=== PATIENT | male | born 1965 | race Caucasian/White ===

== ENCOUNTER 2016-10-31 07:14 | Day surgery (SDC) | payer BC, OTHER ==
[2016-10-28 14:49] VITALS: BMI 27.9
[2016-10-31] MEDS ORDERED: LIDOCAINE HCL/PF 2% SDV 5ML VIAL ONE (08:02)
[2016-10-31] MEDS ORDERED: PROPOFOL 20 ML ONE ×4 (08:02)
[2016-10-31 09:26] VITALS: TEMP 98.8
[2016-10-31 10:01] VITALS: BP 131/95; PULSE 84
--- NOTE | 2016-11-01 14:32 | PATH ---
Surgical Pathology Report Patient Name: VERONICA MIR [facility]. Rec. #: [id number] /Age/Gender: 1965 (Age: 51) / M Account: [id number] Location: [facility]-ENDOSCOPY Taken: 10/31/2016 Received: 10/31/2016 Reported: 11/01/2016 Physicians: Tom Banks M.D. Specimen(s) Received BX GE JUNCTION Clinical History Rectal bleeding, Booker's esophagus Hiatal hernia, irregular Z-line, fundic gland polyp, grade 2 hemorrhoids, diverticulosis Final Diagnosis GE JUNCTION, BIOPSY: SQUAMOUS EPITHELIUM WITH CHRONIC INFLAMMATION AND REFLUX TYPE CHANGES. NO COLUMNAR EPITHELIUM PRESENT (NO INTESTINAL METAPLASIA OR BOOKER'S ESOPHAGUS IDENTIFIED IN THE EXAMINED MATERIAL). Comment: Prior history of Booker's esophagus is noted. Endoscopic correlations and followup are suggested. Electronically Signed Romario Gonzalez M.D. Gross Description Received in formalin, labeled "GE junction" are three fragments of lozano-white tissue measuring 0.2-0.3 cm in greatest dimension. The specimen is submitted in toto in one cassette. AF/10/31/2016 final/10/31/2016
== END 2016-10-31 10:00 | disposition home or self-care (01) ==
LOC: JASU-ENDO 07:14
PROVIDERS: ATTEND Internal Medicine Gastroenterology
PROC: 0DB58ZX Excision of Esophagus, Via Natural or Artificial Opening Endoscopic, Diagnostic (ICD-10-PCS; 2016-10-31)
PROC: 0DB68ZX Excision of Stomach, Via Natural or Artificial Opening Endoscopic, Diagnostic (ICD-10-PCS; 2016-10-31)
PROC: 0DJD8ZZ Inspection of Lower Intestinal Tract, Via Natural or Artificial Opening Endoscopic (ICD-10-PCS; principal; 2016-10-31 08:00)
DX: K31.7 Polyp of stomach and duodenum (principal); K44.9 Diaphragmatic hernia without obstruction or gangrene; K31.89 Other diseases of stomach and duodenum; K92.1 Melena; K57.30 Diverticulosis of large intestine without perforation or abscess without bleeding; K64.8 Other hemorrhoids
CPT/HCPCS: 88305-TC

== ENCOUNTER 2017-05-24 11:25 | Inpatient (IN) | payer BC, OTHER ==
--- NOTE | 2017-05-24 12:38 | PDOC ---
History of Present Illness - General Chief Complaint: Nausea/Vomiting Stated Complaint: VOMITING History Source: Patient Exam Limitations: No Limitations - History of Present Illness Initial Comments: 05/24/17 12:59 HPI: This 51-year-old male presents to the emergency room with complaints of nausea, vomiting, low-grade fever, tachycardia, and abdominal pain that started yesterday. He does have a significant history of chronic pain issues and does use medical marijuana however he is only just does this twice a day. Chief Compliant: Nausea, vomiting, right upper quadrant abdominal pain Pain location: Right upper quadrant Duration: Last evening Modifying factors: Medical marijuana Quality: Sharp Radiating: A few sleeve around the abdomen Severity: Severe Time: continual PMH: Chronic lower back pain, hypertension, reflux, diaphragmatic hernia, tachycardia, liver disease, Villar's esophagus FH: Pt has not recently traveled outside the country in the last 30 days. Pt has not been in contact with people who have traveled out of the country, in contact with people who have been ill with fever, n, v, d. SH: smoking use: Positive every day illicit drug use: Medical marijuana twice a day alcohol use: NONE employment/educational status: sexual history: PSH: Laminectomy 2, cervical discectomy Home med use noted on APR Allergies: NKA Immunizations: PCP: Dr. Beatrice Kee [employer]: LMP: G P : Past History - Past Medical History Allergies/Adverse Reactions: Allergies Allergy/AdvReac Type Severity Reaction Status Date / Time No Known Drug Allergies Allergy Verified 05/24/17 11:56 Home Medications: Ambulatory Orders Hydrochlorothiazide [Hctz -] 25 mg PO DAILY #0 tablet 09/02/12 Lisinopril [Prinivil] 20 mg PO DAILY 08/16/13 Aspirin [Aspirin EC] 81 mg PO DAILY #0 05/02/14 Omeprazole [Prilosec] 20 mg PO DAILY 05/02/14 Esomeprazole Magnesium [Nexium 24Hr] 20 mg PO HS 05/24/17 Medical Marijuana Tab 1 tab PO BID 05/24/17 Pravastatin Sodium 10 mg PO DAILY 05/24/17 Anemia: No Asthma: No Cancer: No Cardiac Disorders: Yes (TACHYCARDIA,CHEST PAIN) CVA: No COPD: No CHF: No Dementia: No Diabetes: No GI Disorders: No Disorders: No HTN: Yes Hypercholesterolemia: No Liver Disease: No Seizures: No Thyroid Disease: No - Surgical History Abdominal Surgery: No Appendectomy: No Cardiac Surgery: Yes (CARDIAC CATH - NEG) Cholecystectomy: No Lung Surgery: No Neurologic Surgery: Yes (LAMINECTOMY, DISC FUSION) Orthopedic Surgery: Yes (BACK/NECK SURGERY,LAMINECTOMY-THREE DISKS) - Immunization History Td Vaccination: No Immunization Up to Date: No - Suicide/Smoking/Psychosocial Hx Smoking Status: No Smoking History: Unknown if ever smoked Have you smoked in the past 12 months: No Number of Cigarettes Smoked Daily: 0 Information on smoking cessation initiated: No Hx Alcohol Use: No Drug/Substance Use Hx: No Substance Use Type: Alcohol Hx Substance Use Treatment: No Review of Systems - Review of Systems Able to Perform ROS?: Yes Comments:: 05/24/17 13:15 General statement: Abdominal pain Hematology: neg history of bleeding/blood thinners Skin: Neg for lesions, rash, bruising. HEENT: Neg symptoms Respiratory: Neg SOB or difficulty in breathing Cardiac: Neg chest pain GI:+ pain,+ n/v bile color : Neg problems on voiding MS: Neg for joint pain/stiffness, no edema Neuro: Neg for LOC, weakness, Endocrine: Neg for excess thirst/hunger, cold/heat intolerance, excess sweating Allergies: Neg for allergies *Physical Exam - Vital Signs Last Vital Signs Temp Pulse Resp BP Pulse Ox 100.3 F H 127 H 16 137/90 100 05/24/17 11:56 05/24/17 11:56 05/24/17 11:56 05/24/17 11:56 05/24/17 11:56 - Physical Exam Comments: 05/24/17 13:16 General Appearance: This ill-appearing 51-year-old man V/S: Slightly tachycardic at 120, low-grade fever of 100.3 Skin: WNL of pt's skin color, no signs of pallor, mottling, cyanosis Head:symmetrical Eyes: EOM's intact, PERRLA Ears: denies pain Nose: patent Throat: lips, teeth, gums, tongue, buccal mucos pink and moist Lungs: Chest symmetry equal. Cap refill <3 seconds. Lung sounds clear Cardiac: PMI at R 4MCL space, pos S1 and S2, regular rate. Abdomen: Soft, round, +tender right upper quadrant however noted to be wincing when palpated to the left upper and the left lower. Positive Stallworth sign : Not observed Muscularskeletal: Gait steady, ambulated in to ER, no edema +PMS Neuro: AAOx3, cognitively intact, speech clear and appropriate. ED Treatment Course - LABORATORY CBC & Chemistry Diagram: 05/24/17 13:31 05/24/17 13:31 Medical Decision Making - Medical Decision Making 05/24/17 13:17 A/P: 51-year-old man with abdominal pain, nausea vomiting rule out cholecystitis , diverticulitis, viral syndrome -cbc, cmp, lipase, lactic acid, LFT -ct with po/iv abd/pelvic -ekg -ua -ivf, tylenol, zofran 05/24/17 15:16 labs WNL neg lipase, lft afebrile now with tylenol on board awaiting CT of abd/pel 05/24/17 17:42 CT neg which was unexpected with his physical exam of RUQ pain and fever and nausea during ER course labs reviewed and neg will reach out to Dr. Cabello 05/24/17 18:[address] Cabello who requested GI consult and surgical consult and admit for serial GI exams with pt presentation *DC/Admit/Observation/Transfer Diagnosis at time of Disposition: Abdominal pain of unknown cause - Discharge Dispostion Admit: Yes - Referrals Referrals: Papito Kee MD [Primary Care Provider] - - Patient Instructions - Post Discharge Activity
[2017-05-24] MEDS ORDERED: ONDANSETRON 4 MG/2 ML VIAL ONE ×2 (13:03→15:30)
[2017-05-24] MEDS ORDERED: ACETAMINOPHEN INJECTION 100 ML IVPB ONE (13:17)
[2017-05-24] MEDS ORDERED: PANTOPRAZOLE SODIUM 40 MG VIAL IVPUSH ONE ×2 (13:19→21:00)
[2017-05-24] MEDS ORDERED: SODIUM CHLORIDE 1,000 ML IV STA (13:19)
[2017-05-24] MEDS ORDERED: PANTOPRAZOLE SODIUM 40 MG/100 ML BAG IVPB ONE (13:30)
[2017-05-24] MEDS ORDERED: ACETAMINOPHEN 1000 MG/100 ML VIAL (NON FORMULARY) IVPB ONE (13:33)
[2017-05-24] MEDS ORDERED: morphine CARPU-JECT 2 MG/1 ML DISP.SYRIN IVPUSH ONE (13:33)
[2017-05-24] MEDS ORDERED: ONDANSETRON 4 MG/2 ML VIAL IVPUSH ONE ×2 (13:33→15:29)
[2017-05-24] MEDS ORDERED: morphine SULFATE 4 MG/ML VIAL ONE (13:40)
[2017-05-24 13:57] LABS: BASO % 0.4 % (0-2.0); EOS % 0.1 % (0-4.5); HEMOGLOBIN 14.5 GM/dL (11.7-16.9); LYMPH % 10.1 % (8-40); MCH 25.3 pg (25.7-33.7); MCHC 33.1 g/dl (32.0-35.9); MEAN CELL VOLUME 76.6 fl (80-96); MEAN PLT VOLUME 8.6 fl (7.5-11.1); MONO % 7.3 % (3.8-10.2); NEUT % 82.1 % (42.8-82.8); PLATELET COUNT 274 K/MM3 (134-434); RBC 5.74 M/mm3 (4.00-5.60); RDW 15.9 % (11.9-15.9); WHITE BLOOD COUNT 9.3 K/mm3 (4.0-10.0)
[2017-05-24 14:12] LABS: INR 1.13 (0.82-1.09); PROTHROMBIN TIME (PATIENT) 12.8 SEC (9.98-11.88)
[2017-05-24 14:25] LABS: ALBUMIN 3.8 g/dl (3.4-5.0); ALK PHOS 76 U/L (45-117); ANION GAP 11 (8-16); BILIRUBIN,TOTAL 0.5 mg/dL (0.2-1.0); BLOOD UREA NITROGEN 12 mg/dL (7-18); CALCIUM 8.7 mg/dL (8.5-10.1); CHLORIDE 99 mmol/L (98-107); CO2 29 mmol/L (21-32); CREATININE 1.2 mg/dL (0.7-1.3); GLUCOSE,RANDOM 148 mg/dL (74-106); LIPASE 61 U/L (73-393); POTASSIUM 3.6 mmol/L (3.5-5.1); SGOT/AST 20 U/L (15-37); SGPT/ALT 24 U/L (12-78); SODIUM 139 mmol/L (136-145); TOT PROT 8.3 g/dl (6.4-8.2)
[2017-05-24 15:33] LABS: URINE APPEARANCE CLEAR; URINE BILIRUBIN NEGATIVE (<2.0 mg/dL); URINE BLOOD NEGATIVE (NEGATIVE); URINE COLOR YELLOW; URINE GLUCOSE (UA) NEGATIVE (NEGATIVE); URINE KETONE TRACE (NEGATIVE); URINE LEUK ESTERASE NEGATIVE (NEGATIVE); URINE NITRITE NEGATIVE (NEGATIVE); URINE PROTEIN NEGATIVE (NEGATIVE); URINE UROBILINOGEN NEGATIVE mg/dL (0.2-1.0)
[2017-05-24] MEDS ORDERED: SODIUM CHLORIDE 1,000 ML IV SCH (19:00)
--- NOTE | 2017-05-24 20:59 | HP ---
Admitting History and Physical - Primary Care Physician PCP: Papito Kee - Admission Chief Complaint: Abd pain History of Present Illness: Pt developed nausea and vomiting ( every 2 hours) last night, untill this AM when he came to ER; pt also with had two episodes of diarrhea, one time with blood. Pt also with fever since last night. Pt had colonoscopy last year ( normal per pt and -at bed side). History Source: Patient - Past Medical History Cardiovascular: Yes: HTN, Hyperlipdemia Gastrointestinal: Yes: GERD, Other (Villar's esophagus Fatty liver) Musculoskeletal: Yes: Chronic low back pain (s/p laminectomy X 2) - Past Surgical History Past Surgical History: Yes: Laminectomy (X 2) - Smoking History Smoking history: Unknown if ever smoked Have you smoked in the past 12 months: No Aproximately how many cigarettes per day: 0 - Alcohol/Substance Use Hx Alcohol Use: No Home Medications - Allergies Allergies/Adverse Reactions: Allergies Allergy/AdvReac Type Severity Reaction Status Date / Time No Known Drug Allergies Allergy Verified 05/24/17 11:56 - Home Medications Home Medications: Ambulatory Orders Hydrochlorothiazide [Hctz -] 25 mg PO DAILY #0 tablet 09/02/12 Lisinopril [Prinivil] 20 mg PO DAILY 08/16/13 Aspirin [Aspirin EC] 81 mg PO DAILY #0 05/02/14 Omeprazole [Prilosec] 20 mg PO DAILY 05/02/14 Esomeprazole Magnesium [Nexium 24Hr] 20 mg PO HS 05/24/17 Medical Marijuana Tab 1 tab PO BID 05/24/17 Pravastatin Sodium 10 mg PO DAILY 05/24/17 Review of Systems - Review of Systems Constitutional: reports: Fever, Loss of Appetite. denies: Chills Eyes: denies: Blurred Vision, Eye Pain, Recent Change in Vision HENT: reports: Difficult Swallowing, Throat Pain (after vomitting). denies: Ear Discharge, Ear Pain Neck: denies: Stiffness, Tenderness Cardiovascular: denies: Chest Pain, Palpitations, Shortness of Breath Respiratory: denies: Cough, Hemoptysis, Wheezing Gastrointestinal: reports: Abdominal Pain (on right side), Diarrhea, Nausea, Vomiting. denies: Vomiting Blood Genitourinary: denies: Burning, Discharge, Flank Pain Musculoskeletal: reports: Back Pain. denies: Joint Swelling Integumentary: denies: Bruising, Rash Neurological: denies: Change in LOC, Confusion, Numbness, Tremors Endocrine: denies: Excessive Sweating, Intolerance to Cold Psychiatric: reports: Depression. denies: Anxiety Physical Examination Vital Signs: Vital Signs Temperature 99.9 F H 05/24/17 18:01 Pulse Rate 78 05/24/17 19:36 Respiratory Rate 18 05/24/17 19:36 Blood Pressure 139/95 05/24/17 19:36 O2 Sat by Pulse Oximetry (%) 100 05/24/17 19:36 Constitutional: Yes: No Distress. No: Diaphoresis Eyes: Yes: Conjunctiva Clear, EOM Intact HENT: Yes: Other (dry oral mucosa). No: Epistaxis, Pharyngeal Erythema, Rhinnorhea Neck: Yes: Trachea Midline. No: Lymphadenopathy Cardiovascular: Yes: Regular Rate and Rhythm, S1, S2 Respiratory: Yes: Regular, CTA Bilaterally Gastrointestinal: Yes: Tenderness, Tenderness, Epigastrium (less than in RUQ), Other (tenderness in RUQ > RLQ). No: Hepatomegaly, Palpable Mass ...Rectal Exam: Yes: Deferred Renal/: Yes: CVA Tenderness - Right. No: CVA Tenderness - Left Musculoskeletal: No: Joint Stiffness, Joint Swelling Edema: No Neurological: Yes: Alert, Oriented, Other (sensory and motor examination is grossly symmetric in UE/ LE/ face.) Psychiatric: Yes: Alert, Oriented Labs: CBC, BMP 05/24/17 13:31 05/24/17 13:31 Imaging - Results Cat Scan: Report Reviewed Problem List - Problems (1) Abdominal pain of unknown cause Assessment/Plan: Probable colitis vs Gastroenteritis Code(s): R10.9 - UNSPECIFIED ABDOMINAL PAIN (2) Fever Code(s): R50.9 - FEVER, UNSPECIFIED (3) Hypertension Code(s): I10 - ESSENTIAL (PRIMARY) HYPERTENSION (4) Hypercholesterolemia Code(s): E78.00 - PURE HYPERCHOLESTEROLEMIA, UNSPECIFIED (5) Fatty liver Code(s): K76.0 - FATTY (CHANGE OF) LIVER, NOT ELSEWHERE CLASSIFIED (6) Back pain Code(s): M54.9 - DORSALGIA, UNSPECIFIED (7) Tachycardia Code(s): R00.0 - TACHYCARDIA, UNSPECIFIED Assessment/Plan IVF NPO except meds IV Flagyl, Levaquin IV pantoprazole GI consult Surgery consult AM labs
[2017-05-24 21:52] VITALS: BMI 28.5
[2017-05-24] MEDS: SODIUM CHLORIDE 1,000 ML IV SCH (22:13)
[2017-05-24] MEDS: morphine SULFATE 4 MG/ML VIAL IVPUSH PRN (22:59)
[2017-05-25] MEDS: morphine SULFATE 4 MG/ML VIAL IVPUSH PRN ×3 (05:22→20:22)
[2017-05-25 09:02] LABS: ALBUMIN 3.2 g/dl (3.4-5.0); ANION GAP 9 (8-16); BILIRUBIN,TOTAL 0.3 mg/dL (0.2-1.0); BLOOD UREA NITROGEN 10 mg/dL (7-18); CALCIUM 7.4 mg/dL (8.5-10.1); CHLORIDE 106 mmol/L (98-107); CO2 23 mmol/L (21-32); GLUCOSE,RANDOM 103 mg/dL (74-106); POTASSIUM 3.5 mmol/L (3.5-5.1); SGOT/AST 22 U/L (15-37); SGPT/ALT 22 U/L (12-78); SODIUM 138 mmol/L (136-145); TOT PROT 6.8 g/dl (6.4-8.2)
[2017-05-25 09:03] LABS: ALK PHOS 65 U/L (45-117)
--- NOTE | 2017-05-25 09:48 | PN ---
Progress Note, Physician History of Present Illness: Pt with an episode of diarrhea and nausea. Pt c/o worsening back pain, thinks that it was aggravated by recurrent vomiting at home; he states that Morphine help a little today. Pt w/o SOB, CP, palp. - Current Medication List Current Medications: Active Medications Acetaminophen (Tylenol -) 650 mg PO Q6H PRN PRN Reason: FEVER Hydrochlorothiazide (Hctz -) 25 mg PO DAILY [facility] Metronidazole (Flagyl 500mg Premixed Ivpb -) 500 mg in 100 mls @ 100 mls/hr IVPB Q6H-IV [facility] Last Admin: 05/25/17 08:40 Dose: 100 mls/hr Sodium Chloride (Normal Saline -) 1,000 mls @ 100 mls/hr IV ASDIR [facility] Last Admin: 05/24/17 22:13 Dose: 100 mls/hr Lisinopril (Prinivil) 20 mg PO DAILY [facility] Morphine Sulfate (Morphine Sulfate) 2 mg IVPUSH Q4H PRN PRN Reason: PAIN LEVEL 4 - 6 Last Admin: 05/25/17 05:22 Dose: 2 mg - Objective Vital Signs: Vital Signs Temperature 100.3 F H 05/25/17 06:00 Pulse Rate 96 H 05/25/17 06:00 Respiratory Rate 20 05/25/17 06:00 Blood Pressure 158/81 05/25/17 06:00 O2 Sat by Pulse Oximetry (%) 100 05/24/17 21:32 Constitutional: Yes: No Distress Cardiovascular: Yes: Regular Rate and Rhythm, S1, S2 Respiratory: Yes: Regular, CTA Bilaterally. No: Rales Gastrointestinal: Yes: Normal Bowel Sounds, Soft, Tenderness (in RUQ), Tenderness, Epigastrium (severe with palpation) Edema: No Neurological: Yes: Alert, Oriented Labs: CBC, BMP 05/25/17 06:30 05/25/17 06:30 INR, PTT INR 1.13 (0.82-1.09) 05/24/17 13:31 Problem List - Problems (1) Abdominal pain of unknown cause Code(s): R10.9 - UNSPECIFIED ABDOMINAL PAIN (2) Fever Code(s): R50.9 - FEVER, UNSPECIFIED (3) Hypertension Code(s): I10 - ESSENTIAL (PRIMARY) HYPERTENSION (4) Hypercholesterolemia Code(s): E78.00 - PURE HYPERCHOLESTEROLEMIA, UNSPECIFIED (5) Fatty liver Code(s): K76.0 - FATTY (CHANGE OF) LIVER, NOT ELSEWHERE CLASSIFIED (6) Back pain Code(s): M54.9 - DORSALGIA, UNSPECIFIED (7) Tachycardia Code(s): R00.0 - TACHYCARDIA, UNSPECIFIED Assessment/Plan IVF IV Flagyl. GI consult; Dr. Violet Acosta ( Covering) on the floor, case was discussed with him , to see pt soon. Surgery consult Morphine IV. NPO for now, until cleared by GI. AM labs
[2017-05-25 10:15] LABS: HEMATOCRIT 40.2 % (35.4-49); HEMOGLOBIN 13.1 GM/dL (11.7-16.9); MCH 25.3 pg (25.7-33.7); MCHC 32.5 g/dl (32.0-35.9); MEAN CELL VOLUME 77.8 fl (80-96); MEAN PLT VOLUME 8.5 fl (7.5-11.1); PLATELET COUNT 235 K/MM3 (134-434); RBC 5.17 M/mm3 (4.00-5.60); RDW 15.7 % (11.9-15.9); WHITE BLOOD COUNT 6.4 K/mm3 (4.0-10.0)
[2017-05-25] MEDS: LISINOPRIL 20 MG TABLET (FP) PO SCH (10:23)
[2017-05-25] MEDS: HYDROCHLOROTHIAZIDE 25 MG TABLET (FP) PO SCH (10:23)
[2017-05-25] MEDS: SODIUM CHLORIDE 1,000 ML IV SCH (10:24)
--- NOTE | 2017-05-25 10:43 | CON.GI ---
Consult Consult Specialty:: GI: Dr. Kirk for Dr. Rutledge/Mani who resumes coverage 05/26 Referred by:: Dr. Geneva Kee Reason for Consultation:: Abdominal pain, nausea, vomiting, diarrhea - History of Present Illness Chief Complaint: Nasuea. vomiting and diarrhea History of Present Illness: 51M admitted through [facility] ER for evaluation of N/V/D. He states that symptoms started this past Monday. The vomiting was preceded by a diminished appetite and an episode of non-bloody diarrhea. His niece had similar symptoms the week prior and denies. He recently started on medicinal marijuana the past month. CT scan of the abdomen and pelvis performed with IV contrast on admission was unrevealing. He has a normal WBC as well with low grade temps. The abdominal pain is mid abdomen. He had a diarrheal bowel movement yesterday, none today. He was followed by Dr. Banks in the past. EGD 05/23 revealed a 2cm hiatal hernia and biopsy of a ragged Z-Line revealed squamous without evidence of early's esophagus. Colonoscopy in 2014 revealed hyperplastic sigmoid polyps and was otherwise unrevealing. No vomiting noted today. Admission labs revealed a normal WBC and lipiase level. Hgb A1c 04/23 was 7.9. He states being hungry. - History Source History Provided By: Patient - Past Medical History Cardio/Vascular: Yes: HTN, Hyperlipdemia Gastrointestinal: Yes: GERD, Other (Early's esophagus Fatty liver) Musculoskeletal: Yes: Chronic low back pain (s/p laminectomy X 2) Endocrine: Yes: Diabetes Mellitus - Past Surgical History Past Surgical History: Yes: Laminectomy (X 2) - Alcohol/Substance Use Hx Alcohol Use: Yes (occasional) - Smoking History Smoking history: Unknown if ever smoked Have you smoked in the past 12 months: No Aproximately how many cigarettes per day: 0 - Social History Usual Living Arrangement: With Spouse ADL: Independent Place of : [facility] History of Recent Travel: No Home Medications - Allergies Allergies/Adverse Reactions: Allergies Allergy/AdvReac Type Severity Reaction Status Date / Time No Known Drug Allergies Allergy Verified 05/24/17 11:56 - Home Medications Home Medications: Ambulatory Orders Hydrochlorothiazide [Hctz -] 25 mg PO DAILY #0 tablet 09/02/12 Lisinopril [Prinivil] 20 mg PO DAILY 08/16/13 Aspirin [Aspirin EC] 81 mg PO DAILY #0 05/02/14 Omeprazole [Prilosec] 20 mg PO DAILY 05/02/14 Esomeprazole Magnesium [Nexium 24Hr] 20 mg PO HS 05/24/17 Medical Marijuana Tab 1 tab PO BID 05/24/17 Pravastatin Sodium 10 mg PO DAILY 05/24/17 Family Disease History - Family Disease History Family Disease History: Other: Father (: Does no know medical history), Mother (Alive: DM II), Brother (1, healthy), Sister (2, 1 with cirrhosis (IVDU) ), Son (1, healthy), Daughter (1, healthy) Other Family History: No family h/o colorectal cancer or other GI malignancy Review of Systems - Review of Systems Constitutional: reports: Chills, Fever Cardiovascular: denies: Chest Pain, Shortness of Breath Respiratory: denies: Cough Gastrointestinal: reports: Abdominal Pain, Diarrhea, Nausea, Vomiting. denies: Constipation, Melena, Rectal Bleeding, Vomiting Blood Physical Exam-GI Vital Signs: Vital Signs Temperature 100.3 F H 05/25/17 06:00 Pulse Rate 96 H 05/25/17 06:00 Respiratory Rate 20 05/25/17 06:00 Blood Pressure 158/81 05/25/17 06:00 O2 Sat by Pulse Oximetry (%) 100 05/24/17 21:32 Constitutional: Yes: Calm Eyes: No: Sclera Icterus Cardiovascular: Yes: Regular Rate and Rhythm Respiratory: Yes: CTA Bilaterally Gastrointestinal Inspection: No: Distention ...Auscultate: Yes: Normoactive Bowel Sounds ...Palpate: Yes: Tenderness (TTP mid abdomen), Other (No del real's sign) ...Percussion: No: Tympanitic Edema: No (No LE edema) Neurological: Yes: Alert, Oriented Labs: CBC, BMP 05/25/17 09:15 05/25/17 06:30 INR 1.13 (0.82-1.09) 05/24/17 13:31 Hepatic Panel Total Bilirubin 0.3 mg/dL (0.2-1.0) D 05/25/17 06:30 AST 22 U/L (15-37) 05/25/17 06:30 ALT 22 U/L (12-78) 05/25/17 06:30 Alkaline Phosphatase 65 U/L (45-117) 05/25/17 06:30 Albumin 3.2 g/dl (3.4-5.0) L 05/25/17 06:30 05/24/17 13:31 Lipase 61 L 04/14/17 07:59 Triglycerides 108 Imaging - Results Cat Scan: Report Reviewed, Image Reviewed Problem List - Problems (1) Nausea, vomiting, and diarrhea Assessment/Plan: With sick contact with similar symptoms last week ? Acute gastroenteritis Advised continuing NPO for now Stool for c. diff, O&P, culture ordered Ordered abdominal US to reevealuate gallbladder Monitor daily labs If pain improved and patient remains, nausea/vomiting free, advance to clears Minimize opiate analgesia Code(s): R11.2 - NAUSEA WITH VOMITING, UNSPECIFIED; R19.7 - DIARRHEA, UNSPECIFIED
--- NOTE | 2017-05-25 12:13 | PN ---
Progress Note (short form) - Note Progress Note: surgery pt seen and examined. full consult dictated. 51m developed nausea, fever, and vomiting with diarrhea after eating turkey sandwich and around sick niece last week. Ct with contrast negative. On exam epigastric tenderness without guarding. Plan-abd pain. Negative ct. No indication for exploratory surgery. agree with u/s of gb. suspect enteritis.
--- NOTE | 2017-05-25 12:35 | CONS ---
DATE OF CONSULTATION: 05/25/2017 INPATIENT CONSULTATION REASON FOR CONSULTATION: Abdominal pain. REQUESTING PHYSICIAN: Beatrice Kee M.D. BRIEF HISTORY: This is a 51-year-old male who presents to [facility] complaining of initial loss of appetite, followed by nausea, vomiting and diarrhea. He was noted to have a low-grade fever, and had a CAT scan of his abdomen and pelvis, which was unremarkable. The CAT scan was done with IV contrast. He was admitted, placed on Levaquin and Flagyl antibiotic, and feels somewhat better. Request is made for surgical evaluation for abdominal pain. PAST MEDICAL HISTORY: Significant for hypertension, hyperlipidemia, gastroesophageal reflux disease, fatty liver, Villar's esophagus, and low back pain. PAST SURGICAL HISTORY: Includes laminectomy. SOCIAL HISTORY: Negative for alcohol. Negative for tobacco. His last colonoscopy was this year, unremarkable. He had an upper endoscopy which showed a hiatal hernia that was small. FAMILY HISTORY: Noncontributory. REVIEW OF SYSTEMS: General: Denies fatigue or malaise. Cardiac: Denies chest pain or palpitations. Respiratory: Denies shortness of breath or wheeze. Gastrointestinal: As stated in the HPI. Genitourinary: Denies dysuria. Musculoskeletal: Denies joint pain or joint swelling. Psychiatric: Denies depression or hearing voices. PHYSICAL EXAMINATION: General: This is an overweight 51-year-old male in no distress. Vital signs: He is currently febrile at 100.3, which is also his temperature maximum. His vital signs are stable. HEENT: His head is normocephalic. His sclerae are anicteric. Neck: Supple. Chest: Clear. Abdomen: Soft. He has epigastric tenderness without guarding. He has no obvious surgical scars, no obvious hernias. The remainder of her abdominal exam is benign. His right upper quadrant is benign as well. Extremities: His extremities have no edema. LABORATORY STUDIES: His white blood cell count is normal at 6.4. His chemistries are unremarkable. His coagulation profile is unremarkable. His urinalysis is negative. IMAGING: On review of his CT, there are no inflammatory changes around his gallbladder. No obvious stones seen. There is no bowel obstruction. There is no appendicitis. There are no hernias noted. ASSESSMENT: This is a 51-year-old male with epigastric abdominal pain, nausea and vomiting. This occurred after eating a turkey sandwich, but he had been feeling lack of appetite throughout the day. He was around a niece who had a stomach bug as well approximately a week ago. At this point there is no indication for exploratory surgery. I would recommend consider ultrasound to better evaluate the gallbladder. I suspect the patient has enteritis. He is currently nontoxic. DO SASHA SOTO/[id number]
[2017-05-25] MEDS: ACETAMINOPHEN 325 MG TABLET (FP) PO PRN (17:06)
[2017-05-26] MEDS: SODIUM CHLORIDE 1,000 ML IV SCH ×2 (00:05→13:58)
[2017-05-26] MEDS: morphine SULFATE 4 MG/ML VIAL IVPUSH PRN ×3 (03:21→13:57)
[2017-05-26 07:59] LABS: BASO % 0.4 % (0-2.0); EOS % 0.6 % (0-4.5); HEMATOCRIT 41.3 % (35.4-49); HEMOGLOBIN 13.8 GM/dL (11.7-16.9); MCH 25.7 pg (25.7-33.7); MCHC 33.5 g/dl (32.0-35.9); MEAN CELL VOLUME 76.6 fl (80-96); MEAN PLT VOLUME 8.3 fl (7.5-11.1); MONO % 12.6 % (3.8-10.2); NEUT % 52.4 % (42.8-82.8); PLATELET COUNT 261 K/MM3 (134-434); RDW 15.8 % (11.9-15.9); WHITE BLOOD COUNT 4.8 K/mm3 (4.0-10.0)
[2017-05-26 08:17] LABS: CHLORIDE 101 mmol/L (98-107); POTASSIUM 3.3 mmol/L (3.5-5.1); SODIUM 137 mmol/L (136-145)
[2017-05-26 08:27] LABS: ALBUMIN 3.5 g/dl (3.4-5.0); ALK PHOS 67 U/L (45-117); ANION GAP 9 (8-16); BILIRUBIN,TOTAL 0.3 mg/dL (0.2-1.0); BLOOD UREA NITROGEN 8 mg/dL (7-18); CALCIUM 7.8 mg/dL (8.5-10.1); CO2 27 mmol/L (21-32); GLUCOSE,RANDOM 104 mg/dL (74-106); SGOT/AST 30 U/L (15-37); SGPT/ALT 32 U/L (12-78); TOT PROT 7.4 g/dl (6.4-8.2)
--- NOTE | 2017-05-26 09:01 | PN ---
Progress Note (short form) - Note Progress Note: surgery u/s unremarkable. ct negative as well. no indication for surgery.
[2017-05-26] MEDS: HYDROCHLOROTHIAZIDE 25 MG TABLET (FP) PO SCH (09:23)
[2017-05-26] MEDS: ACETAMINOPHEN 325 MG TABLET (FP) PO PRN ×2 (09:24→18:39)
[2017-05-26] MEDS: LISINOPRIL 20 MG TABLET (FP) PO SCH (09:24)
[2017-05-26] MEDS ORDERED: POTASSIUM CHLORIDE TABS 20 MEQ TABLET.ER (FP) PO ONE (10:40)
--- NOTE | 2017-05-26 10:40 | PN ---
Progress Note, Physician History of Present Illness: Pt with Diarrhea and nausea. Pt c/o worsening back pain, thinks that was aggravated by recurrent vomiting; he states that Morphine help a little today. Pt w/o SOB, CP, palp. - Current Medication List Current Medications: Active Medications Acetaminophen (Tylenol -) 650 mg PO Q6H PRN PRN Reason: FEVER Last Admin: 05/26/17 09:24 Dose: 650 mg Hydrochlorothiazide (Hctz -) 25 mg PO DAILY [facility] Last Admin: 05/26/17 09:23 Dose: 25 mg Metronidazole (Flagyl 500mg Premixed Ivpb -) 500 mg in 100 mls @ 100 mls/hr IVPB Q6H-IV [facility] Last Admin: 05/26/17 08:36 Dose: 100 mls/hr Sodium Chloride (Normal Saline -) 1,000 mls @ 100 mls/hr IV ASDIR [facility] Last Admin: 05/26/17 00:05 Dose: 100 mls/hr Lisinopril (Prinivil) 20 mg PO DAILY [facility] Last Admin: 05/26/17 09:24 Dose: 20 mg Morphine Sulfate (Morphine Sulfate) 4 mg IVPUSH Q4H PRN PRN Reason: PAIN LEVEL 4 - 6 Last Admin: 05/26/17 08:36 Dose: 4 mg - Objective Vital Signs: Vital Signs Temperature 98.8 F 05/26/17 06:00 Pulse Rate 80 05/26/17 06:00 Respiratory Rate 18 05/26/17 06:00 Blood Pressure 137/92 05/26/17 06:00 O2 Sat by Pulse Oximetry (%) 100 05/25/17 21:00 Constitutional: Yes: Anxious Cardiovascular: Yes: Regular Rate and Rhythm, S1, S2 Respiratory: Yes: Regular, CTA Bilaterally. No: Rales Gastrointestinal: Yes: Normal Bowel Sounds, Soft, Tenderness, Epigastrium ( almoust guarding) Edema: No Neurological: Yes: Alert, Oriented Labs: CBC, BMP 05/26/17 06:30 05/26/17 06:30 INR, PTT INR 1.13 (0.82-1.09) 05/24/17 13:31 Problem List - Problems (1) Abdominal pain of unknown cause Code(s): R10.9 - UNSPECIFIED ABDOMINAL PAIN (2) Fever Code(s): R50.9 - FEVER, UNSPECIFIED (3) Hypertension Code(s): I10 - ESSENTIAL (PRIMARY) HYPERTENSION (4) Hypercholesterolemia Code(s): E78.00 - PURE HYPERCHOLESTEROLEMIA, UNSPECIFIED (5) Fatty liver Code(s): K76.0 - FATTY (CHANGE OF) LIVER, NOT ELSEWHERE CLASSIFIED (6) Back pain Code(s): M54.9 - DORSALGIA, UNSPECIFIED (7) Tachycardia Code(s): R00.0 - TACHYCARDIA, UNSPECIFIED Assessment/Plan IVF- to griselda off Clear liquids, to f/u with GI IV Flagyl. GI consult appreciated Surgery consult and f/u appreciated. Pain management consult ( pt used to be on Percoacet, switched medical marijuana but lately not controlling the pain.) AM labs
--- NOTE | 2017-05-26 14:36 | PN ---
GI Progress Note Subjective: GI NOte: Tolerating solids despite diarrhea and anusea. No vomiting. Suspect that much of the nausea is due to morphine. Will stop parenteral narcotics and IV fluids and switch to po. Will start Reglan for post-viral gastroparesis possibility. C diff is negative. - Objective Vital Signs: Vital Signs Temperature 99.3 F 05/26/17 09:00 Pulse Rate 87 05/26/17 09:00 Respiratory Rate 18 05/26/17 09:00 Blood Pressure 151/92 05/26/17 09:00 O2 Sat by Pulse Oximetry (%) 100 05/25/17 21:00 Laboratory Tests 05/24/17 05/24/17 05/26/17 13:31 13:31 06:30 WBC 9.3 C-Reactive Protein 2.0 H Lipase 61 L 05/26/17 06:30 WBC 4.8 C-Reactive Protein Lipase Constitutional: Anxious ...Auscultate: Yes: Normoactive Bowel Sounds ...Palpate: Yes: Soft, Other (nontender) Labs: CBC, BMP 05/26/17 06:30 05/26/17 06:30 INR, PTT INR 1.13 (0.82-1.09) 05/24/17 13:31 Problem List - Problems (1) Gastroenteritis Assessment/Plan: Resolving gastroenteritis with perhaps some gastroparesis aggravated by MS. Will stop MS and start percocet for his back pain. NO GO objections to discharge if continues to tolerate diet. Will replace K Code(s): K52.9 - NONINFECTIVE GASTROENTERITIS AND COLITIS, UNSPECIFIED (2) Nausea, vomiting, and diarrhea Code(s): R11.2 - NAUSEA WITH VOMITING, UNSPECIFIED; R19.7 - DIARRHEA, UNSPECIFIED
[2017-05-26] MEDS ORDERED: oxyCODONE HCL 5 MG TABLET PO PRN (14:42)
[2017-05-26] MEDS ORDERED: ONDANSETRON 4 MG TABLET PO ONE (15:15)
[2017-05-26] MEDS: METOCLOPRAMIDE HCL 10 MG TABLET (FP) PO SCH (18:04)
[2017-05-26] MEDS: oxyCODONE HCL 5 MG TABLET PO PRN (18:39)
[2017-05-26] MEDS ORDERED: ONDANSETRON 4 MG TABLET PO PRN (18:46)
[2017-05-26] MEDS: metroNIDAZOLE 250 MG TABLET PO SCH (21:46)
[2017-05-27] MEDS: ACETAMINOPHEN 325 MG TABLET (FP) PO PRN ×3 (01:13→13:22)
[2017-05-27] MEDS: oxyCODONE HCL 5 MG TABLET PO PRN ×2 (01:13→08:49)
[2017-05-27] MEDS: METOCLOPRAMIDE HCL 10 MG TABLET (FP) PO SCH ×2 (06:03→10:59)
[2017-05-27] MEDS: metroNIDAZOLE 250 MG TABLET PO SCH ×2 (06:03→14:06)
[2017-05-27 08:14] LABS: HEMATOCRIT 41.3 % (35.4-49); HEMOGLOBIN 13.8 GM/dL (11.7-16.9); MCH 25.7 pg (25.7-33.7); MCHC 33.4 g/dl (32.0-35.9); MEAN CELL VOLUME 76.9 fl (80-96); MEAN PLT VOLUME 8.3 fl (7.5-11.1); PLATELET COUNT 253 K/MM3 (134-434); RBC 5.37 M/mm3 (4.00-5.60); WHITE BLOOD COUNT 4.1 K/mm3 (4.0-10.0)
[2017-05-27 08:45] LABS: ANION GAP 10 (8-16); BLOOD UREA NITROGEN 10 mg/dL (7-18); CALCIUM 8.3 mg/dL (8.5-10.1); CHLORIDE 102 mmol/L (98-107); CO2 28 mmol/L (21-32); GLUCOSE,RANDOM 118 mg/dL (74-106); POTASSIUM 3.4 mmol/L (3.5-5.1); SODIUM 140 mmol/L (136-145)
[2017-05-27] MEDS: HYDROCHLOROTHIAZIDE 25 MG TABLET (FP) PO SCH ×2 (08:49→09:33)
[2017-05-27] MEDS: LISINOPRIL 20 MG TABLET (FP) PO SCH ×2 (08:49→09:34)
[2017-05-27 10:13] VITALS: TEMP 98.5
[2017-05-27] MEDS ORDERED: POTASSIUM CHLORIDE TABS 20 MEQ TABLET.ER (FP) PO ONE (10:30)
[2017-05-27 11:06] VITALS: BP 162/101; PULSE 86
[2017-05-27] MEDS ORDERED: oxyCODONE HCL 5 MG TABLET PO PRN (13:06)
--- NOTE | 2017-05-27 13:27 | DS ---
Physical Examination Vital Signs: Vital Signs Temperature 98.5 F 05/27/17 09:00 Pulse Rate 86 05/27/17 11:05 Respiratory Rate 18 05/27/17 09:00 Blood Pressure 162/101 05/27/17 11:05 O2 Sat by Pulse Oximetry (%) 95 05/26/17 21:00 Findings/Remarks: Pt c/o back pain, better now with Oxycodone; his BP is 7-8 /10 before next Oxycodone dose. Pt is eating w/o vomiting, diarrhea; pt still has nausea on and off. Pt w/o SOB, CP, palpitations. Pt's at bedside. My discussion with Dr. Watts and DC instructions were reviewed with both; all questions were answered. Time spent for managing pt's care: over 50 minutes. Constitutional: Yes: No Distress, Calm Cardiovascular: Yes: Regular Rate and Rhythm, S1, S2 Respiratory: Yes: Regular, CTA Bilaterally Gastrointestinal: Yes: Normal Bowel Sounds, Soft, Tenderness, Epigastrium ( improved, no guarding) Edema: No Neurological: Yes: Alert, Oriented Labs: CBC, BMP 05/27/17 07:18 05/27/17 07:18 Discharge Summary Reason For Visit: ABDOMINAL PAIN OF UNKNOWN ETIOLOGY Current Active Problems Abdominal pain of unknown cause (Acute) Fatty liver (Acute) Fever (Acute) Gastroenteritis (Acute) Hypercholesterolemia (Acute) Hypertension (Acute) Nausea, vomiting, and diarrhea (Acute) Tachycardia (Acute) Procedures: Principal: Abd CT scan. Abd US. CXR Hospital Course: Pt came to ER with vomiting, diarrhea, abd pain and fever. Pt was started on IVF , IV abtx, IV Morphine, and was kept NPO. Pt was seen by GI (Dr. Singleton/ Violet Acosta) and Surgery (Dr. Holguin); pt had abd CT scan, then abd US. Pt developed back pain, likely exacerbated by frequent episodes of vomiting. Pt abd symptoms improved slowly, pt was given trial of liquid diet- tolerated but had nausea and required treatment. Pt to be DC'ed home with f/u with my office, GI, Pain Management (pt's condition was d/w Dr. Reich). Condition: Improved - Instructions Diet, Activity, Other Instructions: Resume diet; avoid large meals; avoid spicy food. Referrals: Vladimir Rutledge MD [Staff Physician] - Papito Kee MD [Primary Care Provider] - (1-2 weeks) Nilo Watts MD [Staff Physician] - (next week) Lily Singleton MD [Staff Physician] - (as directed) Disposition: HOME - Home Medications Comprehensive Discharge Medication List: Ambulatory Orders
== END 2017-05-27 14:21 | disposition home or self-care (01) | DRG 392 ==
LOC: JER 11:25 → JERBED 18:06 → J8W 21:16
PROVIDERS: ADMIT Specialist; ATTEND Specialist
DX: K52.9 Noninfective gastroenteritis and colitis, unspecified (principal); I10 Essential (primary) hypertension; K76.0 Fatty (change of) liver, not elsewhere classified; M54.9 Dorsalgia, unspecified; R00.0 Tachycardia, unspecified; E78.5 Hyperlipidemia, unspecified; K21.9 Gastro-esophageal reflux disease without esophagitis; R50.9 Fever, unspecified; R11.2 Nausea with vomiting, unspecified
CPT/HCPCS: 36415; 71045-TC-FY; 74177-TC; 76700-TC; 80048; 80053; 81003; 83605; 83690; 85025; 85027; 85610; 85730; 86140; 87040; 87045; 87046; 87177; 87209; 87324; 87449; 99285-25; J0131; J7030

== ENCOUNTER 2017-07-26 09:58 | Emergency (ER) | payer BC, OTHER ==
[2017-07-26 10:08] VITALS: BP 153/93; PULSE 81; TEMP 98; BMI 27.9
[2017-07-26] MEDS ORDERED: KETOROLAC TROMETHAMINE 60 MG/2 ML VIAL IM ONE (10:44)
--- NOTE | 2017-07-26 10:51 | PDOC ---
History of Present Illness - General Chief Complaint: Pain Stated Complaint: LT KNEE PAIN Time Seen by Provider: 07/26/17 10:19 History Source: Patient Exam Limitations: No Limitations - History of Present Illness Initial Comments: 07/26/17 11:06 Patient came for evaluation of left knee pain that he has had for some weeks. States however over the past few days has progressively worsened where this morning woke up difficulty ambulating. Denies any recent injury, exercise changes, or other trauma. States pain rule out knowledge has progressively worsened to where he has difficulty bending and ambulating. Patient had meniscus repair to right knee months ago and thinks has same issue with his left knee now. Patient's ascertains that tubal surgeries and has had multiple orthopedic issues because of that. This isn't a pain management program, and generally resolves his pain with medical marijuana 07/26/17 15:17 Occurred: reports: yesterday Severity: reports: moderate Pain Location: reports: lower extremity (left knee ) Method of Injury: Yes: unknown Modifying Factors: improves with: immobilization Loss of Consciousness: no loss of consciousness Associated Symptoms (Fall): denies symptoms Past History - Travel Traveled outside of the country in the last 30 days: No Close contact w/someone who was outside of country & ill: No - Past Medical History Allergies/Adverse Reactions: Allergies Allergy/AdvReac Type Severity Reaction Status Date / Time No Known Drug Allergies Allergy Verified 07/26/17 10:04 Home Medications: Ambulatory Orders Hydrochlorothiazide [Hctz -] 25 mg PO DAILY #0 tablet 09/02/12 Lisinopril [Prinivil] 20 mg PO DAILY 08/16/13 Aspirin [Aspirin EC] 81 mg PO DAILY #0 05/02/14 Esomeprazole Magnesium [Nexium 24Hr] 20 mg PO HS 05/24/17 Anemia: No Asthma: No Cancer: No Cardiac Disorders: Yes (TACHYCARDIA,CHEST PAIN) CVA: No COPD: No CHF: No DVT: No Dementia: No Diabetes: No GI Disorders: No Disorders: No HTN: Yes Hypercholesterolemia: No Liver Disease: No Seizures: No Thyroid Disease: No - Surgical History Abdominal Surgery: No Appendectomy: No Cardiac Surgery: Yes (CARDIAC CATH - NEG) Cholecystectomy: No Lung Surgery: No Neurologic Surgery: Yes (LAMINECTOMY, DISC FUSION, RT KNEE) Orthopedic Surgery: Yes (BACK/NECK SURGERY,LAMINECTOMY-THREE DISKS) - Immunization History Td Vaccination: No Immunization Up to Date: No - Suicide/Smoking/Psychosocial Hx Smoking Status: No Smoking History: Unknown if ever smoked Have you smoked in the past 12 months: No Number of Cigarettes Smoked Daily: 0 Information on smoking cessation initiated: No Hx Alcohol Use: Yes (occasional) Drug/Substance Use Hx: Yes ([employer]) Substance Use Type: None Hx Substance Use Treatment: No Review of Systems - Review of Systems Able to Perform ROS?: Yes Is the patient limited Gabonese proficient: Yes Constitutional: Yes: See HPI, Malaise. No: Symptoms Reported, Fever HEENTM: No: Symptoms Reported Respiratory: No: Symptoms reported Musculoskeletal: Yes: Symptoms Reported, See HPI, Joint Pain, Joint Swelling Neurological: Yes: Symptoms reported All Other Systems: Reviewed and Negative *Physical Exam - Vital Signs Last Vital Signs Temp Pulse Resp BP Pulse Ox 98.0 F 81 18 153/93 100 07/26/17 10:04 07/26/17 10:04 07/26/17 10:04 07/26/17 10:04 07/26/17 10:04 - Physical Exam General Appearance: Yes: Nourished, Appropriately Dressed, Apparent Distress, Mild Distress HEENT: positive: MURALI, Normal ENT Inspection, TMs Normal, Pharynx Normal Neck: positive: Supple. negative: Tender, Lymphadenopathy (R), Lymphadenopathy (L) Respiratory/Chest: positive: Lungs Clear Musculoskeletal: negative: Normal Inspection Extremity: positive: Normal Capillary Refill, Tender. negative: Normal Inspection (patient has swelling and arthritic changes noted to both knees, left knee appears mildly enlarged from right knee. Has tenderness in posterior fossa and lateral aspect of knee but without any obvious crepitus or deformity noted. Walks with a limp), Normal Range of Motion Integumentary: positive: Normal Color, Dry, Warm Neurologic: positive: cost specialist II-XII NML intact, Fully Oriented, Alert, Normal Mood/ Affect, Normal Response ED Treatment Course - RADIOLOGY Radiology Studies Ordered: Category Date Time Status KNEE 3 POS-LEFT [RAD] Stat Radiology 07/26/17 10:44 Ordered Progress Note - Progress Note Progress Note: X-ray negative for fractures or dislocations, knee immobilizer placed which provided patient's significant comfort and support, will follow up with orthopedist for probable soft tissue studies *DC/Admit/Observation/Transfer Diagnosis at time of Disposition: Left knee sprain Qualifiers: Encounter type: initial encounter Involved ligament of knee: unspecified ligament Qualified Code(s): S83.92XA - Sprain of unspecified site of left knee, initial encounter - Discharge Dispostion Disposition: HOME Condition at time of disposition: Stable Decision to Admit order: No - Referrals Referrals: Paipto Kee MD [Primary Care Provider] - Juan Pinedo MD [Staff Physician] - - Patient Instructions Printed Discharge Instructions: DI for Knee Sprain Additional Instructions: Rest, ice to area on and off for 15 minutes 4-6 times a day Avoid heavy lifting or exercise until pain and swelling is resolved or until further directed Keep area highly elevated to reduce swelling Use splints/Cody wrap as directed Followup with orthopedist in one to 2 days if not improving, if significantly improved may wait one week for followup with orthopedist May use ibuprofen 2-200 mg tablets every 6 hours as needed for pain - Post Discharge Activity Forms/Work/School Notes: Back to Work
[2017-07-26] MEDS ORDERED: KETOROLAC TROMETHAMINE 60 MG/2 ML VIAL ONE (10:56)
== END 2017-07-26 11:55 | disposition home or self-care (01) ==
LOC: JERFT 09:58
PROC: 2W3RX1Z Immobilization of Left Lower Leg using Splint (ICD-10-PCS; principal; 2017-07-26)
DX: S83.92XA Sprain of unspecified site of left knee, initial encounter (principal); X58.XXXA Exposure to other specified factors, initial encounter; Y93.89 Activity, other specified; Y92.9 Unspecified place or not applicable
CPT/HCPCS: 73562-TC-LT-FY; 99281-25

== ENCOUNTER 2017-11-22 03:42 | Emergency (ER) | payer BC, OTHER ==
[2017-11-22 04:08] VITALS: TEMP 98.5; BMI 27.9
--- NOTE | 2017-11-22 04:13 | PDOC ---
History of Present Illness - General History Source: Patient Exam Limitations: No Limitations - History of Present Illness Initial Comments: 11/22/17 05:45 The patient is a 52 year old male with a significant PMH of chronic back pain, GERD, hypertension, tachycardia, diaphragmatic hernia and liver disease who presents to the emergency department with abdominal pain for 2 days. The patient reports that his abdominal pain is sharp and constant. He states that he was at home yesterday when he began to experience a sudden onset of abdominal pain after dinner. He reports that it feels like something is eating his insides. He reports that his abdominal pain is diffuse and has worsened since yesterday. The patient reports some associated diarrhea. He denies any other symptoms. He denies any fever, chills, nausea, vomiting, constipation, or urinary symptoms. He denies any chest pain, shortness of breath, headache or dizziness. The patient denies any other complaints. <Pallavi Henriquez - Last Filed: 11/22/17 05:45> - General History Source: Patient Exam Limitations: No Limitations <Meri Zamudio - Last Filed: 11/23/17 06:13> - General Chief Complaint: Pain, Acute Stated Complaint: ABD/BACK PAIN Time Seen by Provider: 11/22/17 04:13 Past History <Pallavi Henriquez - Last Filed: 11/22/17 05:45> - Past Medical History Anemia: No Asthma: No Cancer: No Cardiac Disorders: Yes (TACHYCARDIA,CHEST PAIN) CVA: No COPD: No CHF: No DVT: No Dementia: No Diabetes: No GI Disorders: No Disorders: No HTN: Yes Hypercholesterolemia: No Liver Disease: No Seizures: No Thyroid Disease: No - Surgical History Abdominal Surgery: No Appendectomy: No Cardiac Surgery: Yes (CARDIAC CATH - NEG) Cholecystectomy: No Lung Surgery: No Neurologic Surgery: Yes (LAMINECTOMY, DISC FUSION, RT KNEE) Orthopedic Surgery: Yes (BACK/NECK SURGERY,LAMINECTOMY-THREE DISKS) - Immunization History Td Vaccination: No Immunization Up to Date: No - Suicide/Smoking/Psychosocial Hx Smoking Status: No Smoking History: Never smoked Have you smoked in the past 12 months: No Number of Cigarettes Smoked Daily: 0 Hx Alcohol Use: No Drug/Substance Use Hx: No Substance Use Type: None Hx Substance Use Treatment: No <Meri Zamudio - Last Filed: 11/23/17 06:13> - Past Medical History Allergies/Adverse Reactions: Allergies Allergy/AdvReac Type Severity Reaction Status Date / Time No Known Drug Allergies Allergy Verified 11/22/17 05:26 Home Medications: Ambulatory Orders Hydrochlorothiazide [Hctz -] 25 mg PO DAILY #0 tablet 09/02/12 Lisinopril [Prinivil] 20 mg PO DAILY 08/16/13 Aspirin [Aspirin EC] 81 mg PO DAILY #0 05/02/14 Glyburide [Diabeta -] 1.25 mg PO DAILY@0700 11/22/17 Metoclopramide HCl [Reglan] 5 mg PO ASDIR 11/22/17 Pantoprazole Sodium [Protonix -] 40 mg PO DAILY 11/22/17 Review of Systems - Review of Systems Able to Perform ROS?: Yes Comments:: 11/22/17 05:45 GENERAL/CONSTITUTIONAL: No fever or chills. No weakness. HEAD, EYES, EARS, NOSE AND THROAT: No change in vision. No ear pain or discharge. No sore throat. CARDIOVASCULAR: No chest pain or shortness of breath. RESPIRATORY: No cough, wheezing, or hemoptysis. GASTROINTESTINAL: (+)abdominal. No nausea, vomiting, diarrhea or constipation. GENITOURINARY: No dysuria, frequency, or change in urination. MUSCULOSKELETAL: No joint or muscle swelling or pain. No neck or back pain. SKIN: No rash NEUROLOGIC: No headache, vertigo, loss of consciousness, or change in strength/ sensation. ENDOCRINE: No increased thirst. No abnormal weight change. HEMATOLOGIC/LYMPHATIC: No anemia, easy bleeding, or history of blood clots. ALLERGIC/IMMUNOLOGIC: No hives or skin allergy. <Pallavi Henriquez - Last Filed: 11/22/17 05:45> *Physical Exam - Vital Signs Last Vital Signs Temp Pulse Resp BP Pulse Ox 98.5 F 88 19 171/111 H 98 11/22/17 03:57 11/22/17 03:57 11/22/17 03:57 11/22/17 03:57 11/22/17 03:57 - Physical Exam Comments: 11/22/17 05:46 GENERAL: The patient is in no acute distress. HEAD: Normal with no signs of trauma. EYES: PERRLA, EOMI, sclera anicteric, conjunctiva clear. ENT: Ears normal, nares patent, oropharynx clear without exudates. Moist mucous membranes. NECK: Normal range of motion, supple without lymphadenopathy, JVD, or masses. LUNGS: Breath sounds equal, clear to auscultation bilaterally. No wheezes, and no crackles. HEART:Regular rate and rhythm, normal S1 and S2 without murmur, rub or gallop. ABDOMEN: (+)right sided abdominal pain and tenderness on palpation. Soft, normoactive bowel sounds. No guarding, no rebound. No masses palpable. EXTREMITIES: Normal range of motion, no edema. No clubbing or cyanosis. No erythema, or tenderness. NEUROLOGICAL: Cranial nerves II through XII grossly intact. Normal speech. No focal neurological deficits. MUSCULOSKELETAL: Back non-tender to palpation, no CVA tenderness SKIN: Warm, Dry, normal turgor, no rashes or lesions noted. <Pallavi Henriquez - Last Filed: 11/22/17 05:45> - Vital Signs Last Vital Signs Temp Pulse Resp BP Pulse Ox 98.5 F 88 19 171/111 H 98 11/22/17 03:57 11/22/17 03:57 11/22/17 03:57 11/22/17 03:57 11/22/17 03:57 <Meri Zamudio - Last Filed: 11/23/17 06:13> ED Treatment Course - LABORATORY CBC & Chemistry Diagram: 11/22/17 04:57 11/22/17 04:55 - ADDITIONAL ORDERS Additional order review: Laboratory Results 11/22/17 04:55 Sodium 139 Potassium 3.5 Chloride 102 Carbon Dioxide 32 Anion Gap 6 L BUN 15 Creatinine 1.1 Creat Clearance w eGFR > 60 Random Glucose 183 H Calcium 8.9 Total Bilirubin 0.4 AST 17 ALT 22 Alkaline Phosphatase 73 Total Protein 7.6 Albumin 3.7 Total Amylase 44 Lipase 105 11/22/17 04:57 RBC 5.69 H MCV 77.7 L MCHC 31.8 L RDW 16.0 H MPV 8.7 Neutrophils % 75.0 D Lymphocytes % 15.1 D Monocytes % 5.4 Eosinophils % 4.1 D Basophils % 0.4 - Medications Given in the ED: ED Medications Discontinued Medications Generic Name Dose Route Start Last Admin Trade Name Freq PRN Reason Stop Dose Admin Sodium Chloride 1,000 mls @ 1,000 mls/hr 11/22/17 04:32 11/22/17 05:00 Normal Saline - IV 11/22/17 05:31 1,000 mls/hr ASDIR STA Administration Morphine Sulfate 4 mg 11/22/17 04:32 11/22/17 05:00 Morphine Injection - IVPUSH 11/22/17 04:33 4 mg ONCE ONE Administration Ondansetron HCl 4 mg 11/22/17 04:32 11/22/17 05:01 Zofran Injection IVPUSH 11/22/17 04:33 4 mg ONCE ONE Administration <Pallavi Henriquez - Last Filed: 11/22/17 05:45> - LABORATORY CBC & Chemistry Diagram: 11/22/17 04:57 11/22/17 04:55 <Meri Zamudio - Last Filed: 11/23/17 06:13> Medical Decision Making - Medical Decision Making 11/22/17 06:17 52 yo M presenting to the ER with severe abdominal pain He was previously been worked up for this same presentation (CT and endoscopy) Pt has a h/o chronic back pain for which he previously was taking narcotics He is weaning himself off on narcotics by using CBD Abdomen is diffusely tender to palpation Will do: Labs CT Pain medications Re assess Laboratory Tests 11/22/17 11/22/17 04:55 04:57 WBC 9.9 Hgb 14.0 Hct 44.2 Plt Count 301 BUN 15 Creatinine 1.1 Total Amylase 44 Lipase 105 Pt signed out to Dr Cohen, initial presentation <Meri Zamudio - Last Filed: 11/23/17 06:13> *DC/Admit/Observation/Transfer - Attestations Scribe Attestion: 11/22/17 05:46 Documentation prepared by Pallavi Henriquez, acting as medical insurance collector for Meri Zamudio MD. <Pallavi Henriquez - Last Filed: 11/22/17 05:45> <Meri Zamudio - Last Filed: 11/23/17 06:13> Diagnosis at time of Disposition: Abdominal pain - Discharge Dispostion Disposition: HOME Condition at time of disposition: Stable - Referrals Referrals: Papito Flanagan MD [Primary Care Provider] - Ankush Masterson MD [Staff Physician] - - Patient Instructions Printed Discharge Instructions: DI for Abdominal Pain-Adult Additional Instructions: Please take all medications as prescribed. Please call Dr. Masterson to obtain your EGD results and to discuss follow up for your abdominal pain. Please make an appointment to see your PMD in 2-3 days. Please stick to clear liquids and the BRAT diet (bananas, rice, apple sauce, and toast) Please take all medications prescribed by Dr. Masterson. - Post Discharge Activity Forms/Work/School Notes: Back to Work
[2017-11-22] MEDS ORDERED: SODIUM CHLORIDE 1,000 ML IV STA ×2 (04:32→06:15)
[2017-11-22] MEDS ORDERED: morphine CARPU-JECT 4 MG/1 ML DISP.SYRIN IVPUSH ONE ×2 (04:32→06:15)
[2017-11-22] MEDS ORDERED: ONDANSETRON 4 MG/2 ML VIAL IVPUSH ONE (04:32)
[2017-11-22] MEDS ORDERED: morphine SULFATE 4 MG/ML VIAL ONE (04:44)
[2017-11-22] MEDS ORDERED: ONDANSETRON 4 MG/2 ML VIAL ONE (04:44)
[2017-11-22 05:04] LABS: BASO % 0.4 % (0-2.0); EOS % 4.1 % (0-4.5); HEMATOCRIT 44.2 % (35.4-49); LYMPH % 15.1 % (8-40); MCH 24.7 pg (25.7-33.7); MCHC 31.8 g/dl (32.0-35.9); MEAN CELL VOLUME 77.7 fl (80-96); MEAN PLT VOLUME 8.7 fl (7.5-11.1); MONO % 5.4 % (3.8-10.2); PLATELET COUNT 301 K/MM3 (134-434); RBC 5.69 M/mm3 (4.00-5.60); WHITE BLOOD COUNT 9.9 K/mm3 (4.0-10.0)
[2017-11-22 05:27] LABS: ALBUMIN 3.7 g/dl (3.4-5.0); ALK PHOS 73 U/L (45-117); AMYLASE 44 U/L (25-115); ANION GAP 6 MMOL/L (8-16); BILIRUBIN,TOTAL 0.4 mg/dL (0.2-1); BLOOD UREA NITROGEN 15 mg/dL (7-18); CALCIUM 8.9 mg/dL (8.5-10.1); CHLORIDE 102 mmol/L (98-107); CO2 32 mmol/L (21-32); CREATININE 1.1 mg/dL (0.55-1.3); GLUCOSE,RANDOM 183 mg/dL (74-106); LIPASE 105 U/L (73-393); POTASSIUM 3.5 mmol/L (3.5-5.1); SGOT/AST 17 U/L (15-37); SGPT/ALT 22 U/L (13-61); SODIUM 139 mmol/L (136-145); TOT PROT 7.6 g/dl (6.4-8.2)
[2017-11-22] MEDS ORDERED: ACETAMINOPHEN 1000 MG/100 ML VIAL (NON FORMULARY) IVPB ONE (06:20)
[2017-11-22] MEDS ORDERED: ACETAMINOPHEN INJECTION 100 ML IVPB ONE (06:22)
[2017-11-22 06:58] LABS: URINE APPEARANCE SLCLOUDY; URINE BILIRUBIN NEGATIVE (<2.0 mg/dL); URINE COLOR LTYELLOW; URINE GLUCOSE (UA) 3+ (NEGATIVE); URINE KETONE NEGATIVE (NEGATIVE); URINE LEUK ESTERASE NEGATIVE (NEGATIVE); URINE NITRITE NEGATIVE (NEGATIVE); URINE PROTEIN NEGATIVE (NEGATIVE); URINE UROBILINOGEN NEGATIVE mg/dL (0.2-1.0)
--- NOTE | 2017-11-22 09:02 | PDOC ---
*Physical Exam - Vital Signs Last Vital Signs Temp Pulse Resp BP Pulse Ox 98.5 F 76 18 157/87 98 11/22/17 03:57 11/22/17 06:48 11/22/17 06:48 11/22/17 06:48 11/22/17 06:48 - Physical Exam Comments: 11/22/17 10:02 Gen: aaox3, nad, ambulatory in the ED with a steady gait heart: +s1s2 reg lungs: cta b/l abd: soft, epigastric ttp without rebound or guarding ext: no c/c/e ED Treatment Course - LABORATORY CBC & Chemistry Diagram: 11/22/17 04:57 11/22/17 04:55 - ADDITIONAL ORDERS Additional order review: Laboratory Results 11/22/17 11/22/17 06:15 04:55 Sodium 139 Potassium 3.5 Chloride 102 Carbon Dioxide 32 Anion Gap 6 L BUN 15 Creatinine 1.1 Creat Clearance w eGFR > 60 Random Glucose 183 H Calcium 8.9 Total Bilirubin 0.4 AST 17 ALT 22 Alkaline Phosphatase 73 Total Protein 7.6 Albumin 3.7 Total Amylase 44 Lipase 105 Urine Color Ltyellow Urine Appearance Slcloudy Urine pH 7.0 Ur Specific [place] 1.012 Urine Protein Negative Urine Glucose (UA) 3+ H Urine Ketones Negative Urine Blood Negative Urine Nitrite Negative Urine Bilirubin Negative Urine Urobilinogen Negative Ur Leukocyte Esterase Negative 11/22/17 04:57 RBC 5.69 H MCV 77.7 L MCHC 31.8 L RDW 16.0 H MPV 8.7 Neutrophils % 75.0 D Lymphocytes % 15.1 D Monocytes % 5.4 Eosinophils % 4.1 D Basophils % 0.4 - Medications Given in the ED: ED Medications Discontinued Medications Generic Name Dose Route Start Last Admin Trade Name Freq PRN Reason Stop Dose Admin Acetaminophen 1,000 mg 11/22/17 06:20 11/22/17 06:33 Ofirmev Injection - IVPB 11/22/17 06:21 1,000 mg ONCE ONE Administration Sodium Chloride 1,000 mls @ 1,000 mls/hr 11/22/17 04:32 11/22/17 05:00 Normal Saline - IV 11/22/17 05:31 1,000 mls/hr ASDIR STA Administration Morphine Sulfate 4 mg 11/22/17 04:32 11/22/17 05:00 Morphine Injection - IVPUSH 11/22/17 04:33 4 mg ONCE ONE Administration Morphine Sulfate 4 mg 11/22/17 06:15 11/22/17 06:33 Morphine Injection - IVPUSH 11/22/17 06:16 Not Given ONCE ONE Ondansetron HCl 4 mg 11/22/17 04:32 11/22/17 05:01 Zofran Injection IVPUSH 11/22/17 04:33 4 mg ONCE ONE Administration Medical Decision Making - Medical Decision Making 11/22/17 10:02 a/p: 52yo male with n/v and abd pain - underwent EGD testing 1 month -pt with epigastric pain- cramping pain -labs reviewed ct imaging shows poss thickening of the stomach vs underdistension -lactate pending -pt with burning sensation -will remedicate will monitor and reassess 11/22/17 10:55 pt feeling much better no pain at this time no burning sensation takes protonix and reglan follows with Dr. Masterson will call for EGD results discussed all lab results pt stable for dc to home discussed with the patient labs and imaging results 11/22/17 11:25 lactate 1.9 stable for d/c to home *DC/Admit/Observation/Transfer Diagnosis at time of Disposition: Abdominal pain - Discharge Dispostion Disposition: HOME Condition at time of disposition: Stable Decision to Admit order: No - Referrals Referrals: Papito Flanagan MD [Primary Care Provider] - Ankush Masterson MD [Staff Physician] - - Patient Instructions Printed Discharge Instructions: DI for Abdominal Pain-Adult Additional Instructions: Please take all medications as prescribed. Please call Dr. Masterson to obtain your EGD results and to discuss follow up for your abdominal pain. Please make an appointment to see your PMD in 2-3 days. Please stick to clear liquids and the BRAT diet (bananas, rice, apple sauce, and toast) Please take all medications prescribed by Dr. Masterson. - Post Discharge Activity Forms/Work/School Notes: Back to Work - Attestations Physician Attestion: 11/22/17 10:59 I, Dr. Ijeoma Cohen, DO, attest that this document has been prepared under my direction and personally reviewed by me in its entirety. I further attest, that it accurately reflects all work, treatment, procedures and medical decision -making performed by me.
[2017-11-22] MEDS ORDERED: LIDOCAINE VISCOUS 2% ORAL/TOP 20 ML UNIT-DOSE CUP MM ONE (09:48)
[2017-11-22] MEDS ORDERED: MAG HYDROX/AL HYDROX/SIMETH 30 ML UNIT-DOSE CUP PO ONE (09:48)
[2017-11-22] MEDS ORDERED: LIDOCAINE VISCOUS 2% ORAL/TOP 20 ML UNIT-DOSE CUP ONE (10:01)
[2017-11-22] MEDS ORDERED: MAG HYDROX/AL HYDROX/SIMETH 30 ML UNIT-DOSE CUP ONE (10:01)
[2017-11-22 12:10] VITALS: BP 142/97; PULSE 74
== END 2017-11-22 12:09 | disposition home or self-care (01) ==
LOC: JER 03:42
PROC: 3E033NZ Introduction of Analgesics, Hypnotics, Sedatives into Peripheral Vein, Percutaneous Approach (ICD-10-PCS; principal; 2017-11-22)
PROC: 3E0337Z Introduction of Electrolytic and Water Balance Substance into Peripheral Vein, Percutaneous Approach (ICD-10-PCS; 2017-11-22)
PROC: 3E033GC Introduction of Other Therapeutic Substance into Peripheral Vein, Percutaneous Approach (ICD-10-PCS; 2017-11-22)
DX: R10.9 Unspecified abdominal pain (principal)
CPT/HCPCS: 36415; 74177-TC; 80053; 81003; 82150; 83605; 83690; 85025; 87086; 99283-25; J0131; J7030

== ENCOUNTER 2018-06-13 20:26 | Inpatient (IN) | payer BC, OTHER ==
--- NOTE | 2018-06-13 21:00 | PDOC ---
History of Present Illness - General Chief Complaint: Rash Stated Complaint: RASH Time Seen by Provider: 06/13/18 20:59 - History of Present Illness Initial Comments: 06/13/18 22:03 The patient is a 52 year old male with a history of HTN, Chronic back pain who presents for evaluation of fever, malaise, and rash. The patient reports that he began experiencing a subjective fever 1 day ago with associated malaise, nausea and non-productive cough. He noted the development of a puritic rash today prompting his presentation to the ED for further evaluation. He denies any recent sick contacts or travel and otherwise denies chills, SOB, chest pain , vomiting, abdominal pain, or changes with urination or bowel movements. Past History - Past Medical History Allergies/Adverse Reactions: Allergies Allergy/AdvReac Type Severity Reaction Status Date / Time No Known Drug Allergies Allergy Verified 11/22/17 05:26 Home Medications: Ambulatory Orders Hydrochlorothiazide [Hctz -] 25 mg PO DAILY #0 tablet 09/02/12 Lisinopril [Prinivil] 20 mg PO DAILY 08/16/13 Glyburide [Diabeta -] 1.25 mg PO DAILY@0700 11/22/17 Pantoprazole Sodium [Protonix -] 40 mg PO DAILY 11/22/17 Anemia: No Asthma: No Cancer: No Cardiac Disorders: Yes (TACHYCARDIA,CHEST PAIN) CVA: No COPD: No CHF: No DVT: No Dementia: No Diabetes: No GI Disorders: No Disorders: No HTN: Yes Hypercholesterolemia: No Liver Disease: No Seizures: No Thyroid Disease: No - Surgical History Abdominal Surgery: No Appendectomy: No Cardiac Surgery: Yes (CARDIAC CATH - NEG) Cholecystectomy: No Lung Surgery: No Neurologic Surgery: Yes (LAMINECTOMY, DISC FUSION, RT KNEE) Orthopedic Surgery: Yes (BACK/NECK SURGERY,LAMINECTOMY-THREE DISKS) - Immunization History Td Vaccination: No Immunization Up to Date: No - Suicide/Smoking/Psychosocial Hx Smoking Status: No Smoking History: Never smoked Have you smoked in the past 12 months: No Number of Cigarettes Smoked Daily: 0 Hx Alcohol Use: No Drug/Substance Use Hx: No Substance Use Type: None Hx Substance Use Treatment: No Review of Systems - Review of Systems Comments:: 06/13/18 22:05 Constitutional: Subjective Fever, Malaise No chills, fatigue, HEENT: No Rhinorrhea, nasal congestion, visual changes Cardiovascular: No chest pain, syncope, palpitations, lightheadedness Respiratory: No Cough, Hemoptysis, Gastrointestinal: Nausea, No Abdominal pain, Vomiting, Constipation, Diarrhea, Melena Genitourinary: No Dysuria, Frequency, Urgency, Hesitancy, Hematuria, Flank pain Musculoskeletal: No Myalgia, arthralgia Skin: Diffuse itchy rash. No bruising, pallor Neurologic: No Headache, Dizziness, Numbness, Weakness, or Tingling Psychiatric: No Hallucinations. No SI or HI *Physical Exam - Vital Signs Last Vital Signs Temp Pulse Resp BP Pulse Ox 99.3 F 131 H 18 179/101 H 97 06/13/18 20:36 06/13/18 20:36 06/13/18 20:36 06/13/18 20:36 06/13/18 20:36 - Physical Exam Comments: 06/13/18 22:06 General Appearance: Nourished. No Apparent Distress HEENT: EOMI, MURALI. No Pharyngeal Erythema, Tonsillar Exudate, Tonsillar Erythema Neck: No Cervical Lymphadenopathy Respiratory/Chest: Lungs Clear, Normal Breath Sounds. No Crackles, Rales, Rhonchi, Wheezing Cardiovascular: Regular Rhythm, Regular Rate. No Murmur, Gallops, Rubs Gastrointestinal/Abdominal: Normal Bowel Sounds, Soft. No Guarding, Rebound, Tenderness Musculoskeletal: No CVA Tenderness Extremity: Normal Capillary Refill Integumentary: Diffuse papular blanching rash worse around the neck and extending distally. Normal Color, Dry, Warm Neurologic: Fully Oriented, Alert, Normal Mood/Affect, Normal Response, Heart Score/ECG Review #1 ECG reviewed & interpreted by me at: 22:07 06/13/18 22:07 Sinus Tachycardia No Acute ST elevations or depression HR 106 QRS 78 QTc 435 ED Treatment Course - LABORATORY CBC & Chemistry Diagram: 06/14/18 06:45 06/14/18 06:45 Medical Decision Making - Medical Decision Making 06/13/18 22:07 The patient is a 52 year old male with a history of HTN, Chronic back pain who presents for evaluation of fever, malaise, and rash. Differential includes but is not limited to: Viral Syndrome, infectious, Metabolic Derangement. Given the patient's history and physical exam, we will obtain a cbc, cmp, coags, lactate, ekg, chest plain film to evaluate further. We will continue to monitor and reassess while here in the ED. 06/13/18 23:30 CBC demonstrates an elevated wbc to 14. CMp demonstrates an elevated creatinine to 1.4. Lactate is elevated to 2.7. Chest plain film is unremarkable. UA is unremarkable. Given the patient's rash and fever with unknown source, we cannot fully r/o measles. Given his lactic acidosis and elevated wbc in the setting of tachycardia and hypertension, he requires admission for further monitoring and work up. We discussed the case with the admitting team who accepted the patient for admission. *DC/Admit/Observation/Transfer Diagnosis at time of Disposition: Rash Fever Qualifiers: Fever type: unspecified Qualified Code(s): R50.9 - Fever, unspecified - Discharge Dispostion Condition at time of disposition: Stable Decision to Admit order: Yes - Referrals - Patient Instructions - Post Discharge Activity
[2018-06-13 21:44] LABS: BASO % 0.3 % (0-2.0); EOS % 0.1 % (0-4.5); HEMATOCRIT 46.9 % (35.4-49); HEMOGLOBIN 14.8 GM/dL (11.7-16.9); LYMPH % 16.3 % (8-40); MCH 25.2 pg (25.7-33.7); MCHC 31.5 g/dl (32.0-35.9); MONO % 5.7 % (3.8-10.2); NEUT % 77.6 % (42.8-82.8); PLATELET COUNT 341 K/MM3 (134-434); RBC 5.86 M/mm3 (4.00-5.60); RDW 16.1 % (11.9-15.9); WHITE BLOOD COUNT 14.7 K/mm3 (4.0-10.0)
[2018-06-13 22:01] LABS: INR 1.13 (0.83-1.09); PROTHROMBIN TIME (PATIENT) 13.4 SEC (9.7-13.0)
[2018-06-13 22:03] LABS: ACTIVATED PTT 34.3 SECONDS (25.2-36.5)
[2018-06-13] MEDS ORDERED: SODIUM CHLORIDE 1,000 ML IV STA (22:08)
[2018-06-13 22:11] LABS: ALBUMIN 3.6 g/dl (3.4-5.0); BILIRUBIN,TOTAL 0.7 mg/dL (0.2-1); CALCIUM 9.2 mg/dL (8.5-10.1); CREATININE 1.4 mg/dL (0.55-1.3); POTASSIUM 4.5 mmol/L (3.5-5.1); TOT PROT 7.4 g/dl (6.4-8.2)
[2018-06-13] MEDS ORDERED: morphine CARPU-JECT 4 MG/1 ML DISP.SYRIN IVPUSH ONE (22:41)
--- NOTE | 2018-06-13 22:51 | PDOC ---
Documentation entered by Orlin Garrison SCRIBE, acting as scribe for Felisa Fatima DO. Felisa Fatima DO: This documentation has been prepared by the Meli catherine Matthew, SCRIBE, under my direction and personally reviewed by me in its entirety. I confirm that the documentation accurately reflects all work, treatment, procedures, and medical decision making performed by me. Attending Attestation - Resident Resident Name: Jimmy Stauffer - ED Attending Attestation I have performed the following: I have examined & evaluated the patient, The case was reviewed & discussed with the resident, I agree w/resident's findings & plan - HPI HPI: 06/13/18 21:19 Patient is a 52 year old male with a significant past medical history of chronic back pain, GERD, hypertension, tachycardia, diaphragmatic hernia and liver disease, who presents to the ED with complaints of elevated fever that began yesterday afternoon. Patient reports experiencing subjective fevers as well as associated symptoms of general malaise, non productive cough and general body rash. He reports body rash began to develop on his abdomen and began to radiate towards his neck and become itchy, , prompting him to come into the ED for further evaluation. Denies chest pain, Sob. Denies nausea, vomiting. Denies fevers, chills. Denies constipation, diarrhea. Denies dysuria, hematuria. Denies contact with sick individuals, out of state travelling. Denies any other symptoms. Allergies: NKDA. Social history: No smoking. No alcohol. No illicit drugs. Surgical history: None PMD: Dr. Kee - Physicial Exam PE: 06/13/18 21:19 Agree with residents Physical Exam. - Medical Decision Making 06/13/18 22:42 52-year-old male complaining of patient's sensation to his body as well as rash for several days Labs reveal an elevated white blood cell count as well as elevated lactic acid level Rash does not appear to be consistent with measles infection, serology has been sense Plan for admission to medical service for further evaluation
[2018-06-13 23:05] LABS: PH,URINE 7.5 (5.0-8.0); URINE APPEARANCE CLOUDY; URINE BILIRUBIN NEGATIVE (NEGATIVE); URINE COLOR YELLOW; URINE GLUCOSE (UA) TRACE (NEGATIVE); URINE KETONE NEGATIVE (NEGATIVE); URINE LEUK ESTERASE NEGATIVE (NEGATIVE); URINE NITRITE NEGATIVE (NEGATIVE); URINE PROTEIN NEGATIVE (NEGATIVE); URINE UROBILINOGEN 0.2 mg/dL (0.2-1.0)
[2018-06-13] MEDS ORDERED: morphine SULFATE 4 MG/ML VIAL ONE (23:13)
[2018-06-14] MEDS ORDERED: PIPERACILLIN/TAZOB 4.5 GM 4.5 GM in DEXTROSE 5%-WATER 100 ML IVPB ONE (01:32)
[2018-06-14] MEDS ORDERED: VANCOMYCIN 1,000 MG in DEXTROSE 5%-WATER - 250 ML IVPB ONE (01:32)
[2018-06-14] MEDS ORDERED: PIPERACILLIN/TAZOB 4.5 GM 4.5 GM/100 ML BAG IVPB ONE (01:45)
[2018-06-14] MEDS ORDERED: VANCOMYCIN 1 GRAM (PRE-DOCKED) 1,000 MG/250 ML BAG IVPB ONE (01:46)
--- NOTE | 2018-06-14 02:16 | PN ---
Teaching Attending Note Name of Resident: Hayder Martinez ATTENDING PHYSICIAN STATEMENT I saw and evaluated the patient. I reviewed the resident's note and discussed the case with the resident. I agree with the resident's findings and plan as documented. SUBJECTIVE: Patient is a 52 year old man with a PMH of HTN, Chronic back pain, HLD, GERD, tachycardia, diaphragmatic hernia, fatty liver, Kishor's esophagus and NIDDM who presents for evaluation of fever, malaise, and rash. The patient reports that he began experiencing a subjective fever 1 day ago with associated malaise, nausea and non-productive cough. He noted the development of a pruritic rash today prompting his presentation to the ER. Says his daughter had a rash yesterday but it is not similar to his. He denies any recent travel. Denies chills, SOB, chest pain, vomiting, abdominal pain, or changes with urination or bowel movements. He is on disability due to back pain and was scheduled for lumbar disk surgery next week. Uses cannabis for control of back pain. OBJECTIVE: Alert Vital Signs Period Temp Pulse Resp BP Sys/Nolan Pulse Ox Last 24 Hr 99.3 F 131 18 179/101 97 HEENT: No Jaundice, eye redness or discharge, PERRLA, EOMI. Normocephalic, atraumatic. No oral lesions. External ears are normal and hearing is grossly intact. No nasal discharge. Neck: Supple, nontender. No palpable adenopathy or thyromegaly. No JVD Chest: Good effort. Clear to auscultation and percussion. Heart: Regular. No S3, rub or murmur Abdomen: Not distended, soft, nontender and no HSM. No rebound or guarding. Normal bowel sounds. Ext: Peripheral pulses intact. No leg edema. Skin: Warm and dry. No petechiae or ecchymosis. Diffuse papular blanching rash on limbs, back, torso and neck - sparing the palms and sole of feet. Neuro: Alert. Oriented x3. CN 2-12 grossly intact. Sensation grossly intact in all four extremities and DTR are symmetric. Psych: Appropriate mood and affect. Good insight. Current Medications Generic Name Dose Route Start Last Admin Trade Name Freq PRN Reason Stop Dose Admin Vancomycin HCl 1,000 mg/ 250 mls @ 166.667 mls/hr 06/14/18 01:32 Dextrose IVPB 06/14/18 03:01 ONCE ONE Home Medications Medication Instructions Recorded Hydrochlorothiazide [Hctz -] 25 mg PO DAILY #0 tablet 09/02/12 Lisinopril [Prinivil] 20 mg PO DAILY 08/16/13 Aspirin [Aspirin EC] 81 mg PO DAILY #0 05/02/14 Glyburide [Diabeta -] 1.25 mg PO DAILY@0700 11/22/17 Metoclopramide HCl [Reglan] 5 mg PO ASDIR 11/22/17 Pantoprazole Sodium [Protonix -] 40 mg PO DAILY 11/22/17 Abnormal Lab Results 06/13/18 06/13/18 06/13/18 21:30 21:30 21:30 WBC 14.7 H RBC 5.86 H MCH 25.2 L MCHC 31.5 L RDW 16.1 H Absolute Neuts (auto) 11.4 H PT with INR 13.40 H INR 1.13 H Creatinine 1.4 H Random Glucose 230 H Lactic Acid 06/13/18 21:30 WBC RBC MCH MCHC RDW Absolute Neuts (auto) PT with INR INR Creatinine Random Glucose Lactic Acid 2.7 H* ASSESSMENT AND PLAN: 1. Sepsis of unknown source and Possible Measles - No obvious source of infection and rash may not be classic for measles. Also he does not have any obvious risk factor. No acute abnormality on CXR. EKG shows sinus tachycardia with nonspecific T wave changes. Sepsis workup done and patient will be started on IV Vancomycin and Zosyn as well as continued IV NS according to the sepsis protocol. Serologic tests being sent for measles, mononucleosis, lyme disease and syphilis. Will trend lactic acid, consult ID and Dermatology. 2. DM For now, we will hold the home diabetes drugs and implement sliding scale insulin regimen. Provide comprehensive diabetes care with patient teaching and counseling about the importance of adherence to prescribed diabetes regimen, euglycemia, eye care and foot care. 3. ALYSON - Likely partly due to dehydration. Will hydrate, check CPK and avoid nephrotoxic agents such as NSAIDS, aminoglycosides, contrast dyes and certain Alternative medicine products. 4. Uncontrolled Hypertension - Restart outpatient antihypertensive drugs and revise regimen to ensure smooth [id number] good BP control. Nonpharmacologic measures to control hypertension like weight loss, salt restriction and exercise discussed. 5. DVT prophylaxis - Heparin 5000u sq tid. 6. Advance directives - Full code
[2018-06-14] MEDS ORDERED: ACETAMINOPHEN 325 MG TABLET (FP) PO PRN (02:23)
[2018-06-14] MEDS ORDERED: LACTATED RINGERS SOLUTION 1,000 ML IV SCH (02:30)
--- NOTE | 2018-06-14 02:50 | HP ---
CHIEF COMPLAINT: rash PCP: jim HISTORY OF PRESENT ILLNESS: 52 year old male hx of hypertension, chronic back pain (only on cannabis for pain), DM presented for vague symptoms of feeling alternating hot and cold/ chills for 2 days. This morning woke up nauseous, dizzy, headache, hot, anxious (to the point of crying) and had no appetite. Reports lost 6 pounds in last 3-4 days due to anxiety and no appetite. Went to doctor today (spine surgeon), got hot in his office after being explained the surgery (3 herniated discs with a surgeon at [facility]) hes going to get done on his lumbar spine next week, went home and noticed rash in bathroom on his abdomen, that later progressed to his arms, chest and legs. Reports that the rash is very pruritic but not painful. Checked his blood pressure and it was high at home. Reports no known diagnosis of anxiety and no triggers of anxiety. States that the only new medication he tried yesterday were 2 percocets for pain (he states he has not taken them in a while). Denies sick contacts, but reports that his daughter has a different rash. Daughter works at a school. Patient reports he had his routine vaccinations as a child. 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 ER course was notable for: (1) WBC 14.7 (2) BP elevated (3) LA 2.7 Recent Travel: denies PAST MEDICAL HISTORY: HTN, Chronic back pain, DM, anxiety Social History: Smoking: never cigs/marijuana Alcohol: never Drugs: marijuana Family History: grandma had cancer/dm -mother: DM, RA -Father: alcoholic -2 kids healthy Allergies No Known Drug Allergies Allergy (Verified 11/22/17 05:26) HOME MEDICATIONS: Home Medications Medication Instructions Recorded Hydrochlorothiazide [Hctz -] 25 mg PO DAILY #0 tablet 09/02/12 Lisinopril [Prinivil] 20 mg PO DAILY 08/16/13 Aspirin [Aspirin EC] 81 mg PO DAILY #0 05/02/14 Glyburide [Diabeta -] 1.25 mg PO DAILY@0700 11/22/17 Metoclopramide HCl [Reglan] 5 mg PO ASDIR 11/22/17 Pantoprazole Sodium [Protonix -] 40 mg PO DAILY 11/22/17 REVIEW OF SYSTEMS CONSTITUTIONAL: loss of appetite Absent: fever, chills, diaphoresis, generalized weakness, malaise, weight change HEENT: Absent: rhinorrhea, nasal congestion, throat pain, throat swelling, difficulty swallowing, mouth swelling, ear pain, eye pain, visual changes CARDIOVASCULAR: Absent: chest pain, syncope, palpitations, irregular heart rate, lightheadedness , peripheral edema RESPIRATORY: Absent: cough, shortness of breath, dyspnea with exertion, orthopnea, wheezing, stridor, hemoptysis GASTROINTESTINAL: Absent: abdominal pain, abdominal distension, nausea, vomiting, diarrhea, constipation, melena, hematochezia GENITOURINARY: Absent: dysuria, frequency, urgency, hesitancy, hematuria, flank pain, genital pain MUSCULOSKELETAL: Absent: myalgia, arthralgia, joint swelling, back pain, neck pain SKIN: rash, itching Absent: pallor HEMATOLOGIC/IMMUNOLOGIC: Absent: easy bleeding, easy bruising, lymphadenopathy, frequent infections ENDOCRINE: Absent: unexplained weight gain, unexplained weight loss, heat intolerance, cold intolerance NEUROLOGIC: Absent: headache, focal weakness or paresthesias, dizziness, unsteady gait, seizure, mental status changes, bladder or bowel incontinence PSYCHIATRIC: Absent: anxiety, depression, suicidal or homicidal ideation, hallucinations. PHYSICAL EXAMINATION Vital Signs - 24 hr 06/13/18 20:36 Temperature 99.3 F Pulse Rate 131 H Respiratory 18 Rate Blood Pressure 179/101 H O2 Sat by Pulse 97 Oximetry (%) GENERAL: A&Ox3, no acute distress, very anxious on exam EYES: PERRLA, EOMI ENT: Moist mucus membranes NECK: No JVD LUNGS: CTA, no wheezes HEART: tachycardic, no murmurs ABDOMEN: Soft, nontender, BS present MUSCULOSKELETAL: No CVA Tenderness EXTREMITIES: 2+ pulses, no edema. NEUROLOGICAL: Cranial nerves II-XII intact. SKIN: Scattered erythematous maculopapular lesions sparring palms and soles on abdomen and extremities. No oral lesions. Laboratory Results - last 24 hr 06/13/18 06/13/18 06/13/18 21:30 21:30 21:30 WBC 14.7 H RBC 5.86 H Hgb 14.8 Hct 46.9 MCV 80.0 MCH 25.2 L MCHC 31.5 L RDW 16.1 H Plt Count 341 MPV 8.0 Absolute Neuts (auto) 11.4 H Neutrophils % 77.6 Lymphocytes % 16.3 Monocytes % 5.7 Eosinophils % 0.1 D Basophils % 0.3 Nucleated RBC % 0 PT with INR 13.40 H INR 1.13 H PTT (Actin FS) 34.3 Sodium 136 Potassium 4.5 Chloride 103 Carbon Dioxide 26 Anion Gap 8 BUN 18 Creatinine 1.4 H Est GFR (CKD-EPI)AfAm 66.95 Est GFR (CKD-EPI)NonAf 57.76 Random Glucose 230 H Lactic Acid Calcium 9.2 Total Bilirubin 0.7 AST 23 ALT 22 Alkaline Phosphatase 81 Total Protein 7.4 Albumin 3.6 Urine Color Urine Appearance Urine pH Ur Specific [place] Urine Protein Urine Glucose (UA) Urine Ketones Urine Blood Urine Nitrite Urine Bilirubin Urine Urobilinogen Ur Leukocyte Esterase 06/13/18 06/13/18 21:30 22:40 WBC RBC Hgb Hct MCV MCH MCHC RDW Plt Count MPV Absolute Neuts (auto) Neutrophils % Lymphocytes % Monocytes % Eosinophils % Basophils % Nucleated RBC % PT with INR INR PTT (Actin FS) Sodium Potassium Chloride Carbon Dioxide Anion Gap BUN Creatinine Est GFR (CKD-EPI)AfAm Est GFR (CKD-EPI)NonAf Random Glucose Lactic Acid 2.7 H* Calcium Total Bilirubin AST ALT Alkaline Phosphatase Total Protein Albumin Urine Color Yellow Urine Appearance Cloudy Urine pH 7.5 Ur Specific [place] 1.010 Urine Protein Negative Urine Glucose (UA) Trace Urine Ketones Negative Urine Blood Negative Urine Nitrite Negative Urine Bilirubin Negative Urine Urobilinogen 0.2 Ur Leukocyte Esterase Negative ASSESSMENT/PLAN: 52 year old male hx of hypertension, chronic back pain (only on cannabis for pain), DM presented for vague symptoms and admitted for the evaluation and treatment of systemic inflammatory response with rash #SIRS: tachycardic and elevated white count with no obvious source of infection (UA negative, CXR clear), only rash present on exam -Lactic acid 2.7, repeat -Viral panels sent for measles, flu, mono, RPR sent -Treated with vanc/zosyn in ED -continue empiric vancomycin/zosyn for now until cultures -ID consulted -fluids with LR #Hypertension: uncontrolled and complicated by anxiety and pain -decreased HCTZ and held lisinopril due to kidney injury, but will need to restart MATEO on discharge -start Norvasc 5 now and 5 in AM -recheck BP in AM #Elevated Creatinine: unclear at present time if ALYSON vs CKD -patient is getting fluids -will recheck BMP in AM -can get microalbumin to check for kidney damage from longstanding DM and HTN #Diabetes Mellitus: uncontrolled with BG > 230 -held oral antiglycemic angents -ISS -BGM -A1C in AM #Anxiety: no known diagnosis -consider psychiatry evaluation -ofirmev and morphine overnight for pain, can likely d/c narcotic in AM #Sinus Tachycardia: on EKG, likely due to pain vs anxiety -consider repeating EKG in AM #FEN -LR @ 100cc/hr 1 bag -lytes normal -diabetic diet #Prophylaxis -heparin #Disposition -admit med surg Visit type - Emergency Visit Emergency Visit: Yes ED Registration Date: 06/13/18 Care time: The patient presented to the Emergency Department on the above date and was hospitalized for further evaluation of their emergent condition. - New Patient This patient is new to me today: Yes Date on this admission: 06/14/18 - Critical Care Critical Care patient: No
[2018-06-14] MEDS ORDERED: diphenhydrAMINE HCL 25 MG CAPSULE (FP) PO ONE ×2 (03:13→04:07)
[2018-06-14] MEDS ORDERED: morphine SULFATE 4 MG/ML VIAL IVPUSH ONE ×2 (03:14→14:16)
[2018-06-14] MEDS ORDERED: amLODIPine BESYLATE 5 MG TABLET (FP) PO ONE (03:14)
[2018-06-14] MEDS ORDERED: ACETAMINOPHEN 1000 MG/100 ML VIAL (NON FORMULARY) IVPB ONE (03:14)
[2018-06-14] MEDS ORDERED: ALPRAZolam 0.25 MG TABLET PO ONE (03:32)
[2018-06-14] MEDS ORDERED: MORPHINE SULFATE 10 MG/1 ML *VIAL ONE (04:06)
[2018-06-14] MEDS ORDERED: ALPRAZolam 0.25 MG TABLET ONE ×2 (04:07→04:10)
[2018-06-14] MEDS ORDERED: amLODIPine BESYLATE 5 MG TABLET (FP) ONE (04:08)
[2018-06-14] MEDS ORDERED: ACETAMINOPHEN INJECTION 100 ML IVPB ONE (04:08)
[2018-06-14] MEDS ORDERED: INSULIN SLIDING SCALE (NOVOLOG) 1 VIAL SQ SCH (07:00)
[2018-06-14] MEDS: HEPARIN NA (PORCINE) 5,000 UNITS/ML 1ML VIAL SQ SCH ×3 (07:00→22:10)
[2018-06-14] MEDS: INSULIN SLIDING SCALE (NOVOLOG) 1 VIAL SQ SCH ×4 (07:12→22:11)
[2018-06-14] MEDS ORDERED: HEPARIN NA (PORCINE) 5,000 UNITS/ML 1ML VIAL ONE (07:13)
[2018-06-14 07:16] LABS: HEMATOCRIT 43.1 % (35.4-49); HEMOGLOBIN 13.9 GM/dL (11.7-16.9); MCH 25.7 pg (25.7-33.7); MCHC 32.4 g/dl (32.0-35.9); MEAN CELL VOLUME 79.3 fl (80-96); PLATELET COUNT 325 K/MM3 (134-434); RBC 5.43 M/mm3 (4.00-5.60); RDW 16.2 % (11.9-15.9); WHITE BLOOD COUNT 11.4 K/mm3 (4.0-10.0)
[2018-06-14 07:26] LABS: CALCIUM 8.5 mg/dL (8.5-10.1); CREATININE 1.2 mg/dL (0.55-1.3); POTASSIUM 4.2 mmol/L (3.5-5.1)
[2018-06-14] MEDS: HYDROCHLOROTHIAZIDE 12.5 MG CAPSULE (FP) PO SCH (09:29)
[2018-06-14] MEDS: amLODIPine BESYLATE 5 MG TABLET (FP) PO SCH (09:29)
[2018-06-14] MEDS: PANTOPRAZOLE 40 MG TABLET (FP) PO SCH (09:30)
[2018-06-14] MEDS: PIPERACILLIN/TAZOB 3.375 GM 3.375 GM in DEXTROSE 5%-WATER - 50 ML IVPB SCH ×2 (09:30→16:29)
[2018-06-14] MEDS ORDERED: PIPERACILLIN/TAZOB 3.375 GM 3.375 GM/50 ML BAG IVPB ONE (09:31)
[2018-06-14] MEDS ORDERED: MORPHINE SULFATE 2 MG/ML VIAL IVPUSH ONE (13:30)
[2018-06-14] MEDS ORDERED: morphine SULFATE 4 MG/ML VIAL ONE ×2 (13:32→14:26)
[2018-06-14] MEDS ORDERED: VANCOMYCIN 1,250 MG in DEXTROSE 5%-WATER - 250 ML IVPB SCH (14:00)
[2018-06-14 15:44] VITALS: BMI 27.2
[2018-06-14] MEDS ORDERED: DEXTROSE 5%-WATER - 50 ML IVPB ONE (16:21)
[2018-06-14] MEDS ORDERED: PIPERACILLIN/TAZOBACTAM 3.375 GM VIAL IVPB ONE (16:21)
[2018-06-14] MEDS ORDERED: DOCUSATE SODIUM 100 MG CAPSULE (FP) PO PRN (16:40)
[2018-06-14] MEDS ORDERED: KETOROLAC TROMETHAMINE 30 MG/1 ML VIAL IVPUSH PRN (16:40)
[2018-06-14] MEDS ORDERED: ALPRAZolam 0.25 MG TABLET PO PRN (16:44)
[2018-06-14] MEDS: HYDROmorphone HCl 2 MG/ML VIAL IVPB PRN (17:30)
[2018-06-14] MEDS ORDERED: diphenhydrAMINE HCL 25 MG CAPSULE (FP) PO PRN (18:37)
[2018-06-14] MEDS: VANCOMYCIN 1 GRAM (PRE-DOCKED) 1,000 MG/250 ML BAG IVPB SCH (20:01)
[2018-06-15] MEDS: HYDROmorphone HCl 2 MG/ML VIAL IVPB PRN ×3 (00:26→18:29)
[2018-06-15] MEDS ORDERED: PIPERACILLIN/TAZOBACTAM 3.375 GM VIAL IVPB ONE ×2 (01:36→11:16)
[2018-06-15] MEDS ORDERED: DEXTROSE 5%-WATER - 50 ML IVPB ONE ×2 (01:36→11:17)
[2018-06-15] MEDS: PIPERACILLIN/TAZOB 3.375 GM 3.375 GM in DEXTROSE 5%-WATER - 50 ML IVPB SCH ×2 (01:52→11:19)
[2018-06-15] MEDS ORDERED: VANCOMYCIN 1,250 MG in DEXTROSE 5%-WATER - 250 ML IVPB SCH (02:00)
[2018-06-15] MEDS ORDERED: PIPERACILLIN/TAZOB 3.375 GM 3.375 GM in DEXTROSE 5%-WATER - 50 ML IVPB SCH (03:00)
[2018-06-15] MEDS: INSULIN SLIDING SCALE (NOVOLOG) 1 VIAL SQ SCH ×3 (06:33→18:12)
[2018-06-15] MEDS: HEPARIN NA (PORCINE) 5,000 UNITS/ML 1ML VIAL SQ SCH ×2 (06:33→14:51)
[2018-06-15 06:49] LABS: BASO % 0.3 % (0-2.0); EOS % 0.4 % (0-4.5); HEMATOCRIT 43.2 % (35.4-49); HEMOGLOBIN 13.7 GM/dL (11.7-16.9); LYMPH % 18.8 % (8-40); MCH 25.3 pg (25.7-33.7); MCHC 31.7 g/dl (32.0-35.9); MEAN CELL VOLUME 79.7 fl (80-96); MEAN PLT VOLUME 8.3 fl (7.5-11.1); MONO % 8.3 % (3.8-10.2); NEUT % 72.2 % (42.8-82.8); PLATELET COUNT 327 K/MM3 (134-434); RBC 5.42 M/mm3 (4.00-5.60); RDW 16.1 % (11.9-15.9); WHITE BLOOD COUNT 11.6 K/mm3 (4.0-10.0)
[2018-06-15 07:24] LABS: CALCIUM 8.7 mg/dL (8.5-10.1); POTASSIUM 3.9 mmol/L (3.5-5.1)
[2018-06-15] MEDS: VANCOMYCIN 1 GRAM (PRE-DOCKED) 1,000 MG/250 ML BAG IVPB SCH (08:47)
[2018-06-15] MEDS: amLODIPine BESYLATE 5 MG TABLET (FP) PO SCH (09:29)
[2018-06-15] MEDS: HYDROCHLOROTHIAZIDE 12.5 MG CAPSULE (FP) PO SCH (09:29)
[2018-06-15] MEDS: PANTOPRAZOLE 40 MG TABLET (FP) PO SCH (09:29)
--- NOTE | 2018-06-15 12:24 | PN ---
Progress Note (short form) - Note Progress Note: ID CONSULT DICTATED ? VIRAL SYNDROME NOT MEASLES D/C ANTIBIOTICS D/C ISOLATION OUTPATIENT DERM EVALUATION
--- NOTE | 2018-06-15 13:18 | CONS ---
INFECTIOUS DISEASE CONSULTATION DATE OF CONSULTATION: DATE OF DICTATION: 06/15/2018 HISTORY OF PRESENT ILLNESS: The patient is a 52-year-old male who is evaluated for rash. He reports being ill for approximately 3 days prior to admission. He developed onset of malaise, subjective fever, chills, dizziness, nausea, anorexia, and headache. He subsequently developed a papular rash starting on the right upper extremity and extending to the chest and abdomen. He was pruritic in nature. He presented to the emergency room where he was noted to have an elevated white blood cell count and an elevated lactic acid level. Cultures were obtained. He was empirically treated with vancomycin and Zosyn. Measles serology was performed and is consistent with immunity. The patient is essentially housebound. He is disabled. He denies venturing outdoors. He does not spend a significant amount of time in the outdoor area. He denied any insect or animal bites or scratches. No known ill contacts. In-hospital, he has had a low-grade fever on one occasion. His white blood cell count is improved. He lives at home with his and traveled to [place] 2 months ago; was well at that time. The patient is originally from [place] and is up-to-date with routine childhood immunizations. No known measles exposure. PAST MEDICAL HISTORY: Positive for hypertension, diabetes mellitus, chronic low back pain. PAST SURGICAL HISTORY: Status post laminectomies. ALLERGIES: No known allergies. MEDICATIONS: Hydrochlorothiazide, Prinivil, Zebeta, Protonix. SOCIAL HISTORY: As per HPI. LABORATORY DATA: White count on admission 14.7, neutrophils 72, lymphocytes 18, monocytes 8, hematocrit 43.2, platelet count 327. BUN 17, creatinine 1.0. Urinalysis negative. Liver enzymes are within normal limits. Lactic acid on admission 2.7, presently 1.0. Chest x-ray: No infiltrate. PHYSICAL EXAMINATION: General: On exam, he is awake and alert. He is not acutely toxic appearing. Vital Signs: Temperature 98.0, T-maximum 99.8, blood pressure 136/73, pulse 67 regular, respirations 18 per minute. Eyes: Sclerae are anicteric. Oropharynx: No oral lesions. Neck: Supple. No adenopathy. No lesions on the face or neck. Heart: Heart sounds S1, S2. Lungs: Clear. Abdomen: Soft. Nontender. No palpable liver or spleen. Extremities: Negative for edema. Skin: There are red papular lesions present, primarily on the right upper extremity and some on the left upper extremity. He has many senile angiomas. There is no confluent erythematous rash. No pustules or vesicles. No rash on the palms or soles. IMPRESSION: 1. Probable viral syndrome. 2. Rash, not consistent with measles. Serology documents immunity. Suspect a viral etiology. Will obtain coxsackievirus, although papules do not appear vesicular and are not present on the hands, feet or mouth. Will discontinue antibiotics. Discontinue isolation. Dermatology evaluation either inpatient or outpatient. Patient is clinically stable for discharge. Thank you for the kind referral. ELIUD CASTILLO M.D. DAMARI/[id number]
--- NOTE | 2018-06-15 15:05 | EKG ---
Test Reason : Blood Pressure : / mmHG Vent. Rate : 106 BPM Atrial Rate : 107 BPM P-R Int : 172 ms QRS Dur : 078 ms QT Int : 328 ms P-R-T Axes : 061 055 027 degrees QTc Int : 435 ms SINUS TACHYCARDIA POSSIBLE LEFT ATRIAL ENLARGEMENT NONSPECIFIC T WAVE ABNORMALITY ABNORMAL ECG WHEN COMPARED WITH ECG OF 15-JUL-2016 11:03, NO SIGNIFICANT CHANGE WAS FOUND Confirmed by ELIUD GRIFFITHS MD ([id number]) on 06/15/2018 3:05:41 PM Referred By: Confirmed By:ELIUD GRIFFITHS MD
[2018-06-15 15:28] VITALS: BP 148/91; PULSE 91; TEMP 98.6
--- NOTE | 2018-06-15 18:14 | DS ---
Physical Examination Vital Signs: Vital Signs Temperature 98.6 F 06/15/18 15:25 Pulse Rate 91 H 06/15/18 15:25 Respiratory Rate 20 06/15/18 15:25 Blood Pressure 148/91 06/15/18 15:25 O2 Sat by Pulse Oximetry (%) 99 06/15/18 09:00 Findings/Remarks: Pt w/o fever, chills, stiff neck, [place], running nose, sore throat, cough, diarrhea , dysuria. Pt considers that his skin rash is fading. Pt feels back to himself (+ back pain) Constitutional: Yes: No Distress, Calm Eyes: Yes: Conjunctiva Clear, EOM Intact. No: Sclera Icterus Neck: Yes: Trachea Midline. No: Lymphadenopathy Cardiovascular: Yes: Regular Rate and Rhythm, S1, S2 Respiratory: Yes: Regular. No: CTA Bilaterally, Rhonchi Gastrointestinal: Yes: Normal Bowel Sounds, Soft. No: Tenderness Edema: No Neurological: Yes: Alert, Oriented Labs: CBC, BMP 06/15/18 05:30 06/15/18 05:30 Discharge Summary Reason For Visit: FEVER,RASH,TACHYCARDIA Current Active Problems Fever (Acute) Rash (Acute) Hospital Course: Pt came to the hospital with subjective fever, skin rash; Pt was placed in observation under Hospitalist service. Pt was started on IV abtx, placed in observation; it was a concern that pt might have measles. Pt was seen by ID ( Dr. Lam), considerred to have viral syndrome (no measles), cleared for DC w/o abtx., with outpt Dermatology f/u Condition: Improved - Instructions Diet, Activity, Other Instructions: Resume diet Disposition: HOME - Home Medications Comprehensive Discharge Medication List: Ambulatory Orders See patient discharge instructions Resume ALL home medications
[2018-06-18 18:09] LABS: COXSACKIE A16 IGM Negative titer (Neg:<1:10); COXSACKIE A24 IGM Negative titer (Neg:<1:10); COXSACKIE A7 IGM Negative titer (Neg:<1:10); COXSACKIE A9 IGM Negative titer (Neg:<1:10)
== END 2018-06-15 18:54 | disposition home or self-care (01) | DRG 866 ==
LOC: JER 20:26 → JERBED 23:54 → OBSVTOIN 06-14 03:25 → J8W 06-14 14:46
PROVIDERS: ADMIT Internal Medicine; ATTEND Specialist
DX: B34.9 Viral infection, unspecified (principal); N17.9 Acute kidney failure, unspecified; E11.65 Type 2 diabetes mellitus with hyperglycemia; R00.0 Tachycardia, unspecified; F12.10 Cannabis abuse, uncomplicated; I10 Essential (primary) hypertension; K76.0 Fatty (change of) liver, not elsewhere classified; M54.9 Dorsalgia, unspecified; K21.9 Gastro-esophageal reflux disease without esophagitis; F41.9 Anxiety disorder, unspecified
CPT/HCPCS: 36415; 71045-TC-FY; 80048; 80053; 81003; 82962; 83036; 83605; 85025; 85027; 85610; 85730; 86308; 86593; 86658; 86765; 87040; 87086; 87804; 93005; 93010; 99284-25; G0378; J0131; J1644; J7030

== ENCOUNTER 2020-05-27 14:11 | Emergency (ER) | payer BC, OTHER ==
[2020-05-27 14:33] VITALS: BMI 25.8
[2020-05-27] MEDS ORDERED: LIDOCAINE 5% TOPICAL PATCH TP ONE (14:47)
[2020-05-27] MEDS ORDERED: LIDOCAINE 5% TOPICAL PATCH ONE (15:18)
[2020-05-27 15:41] LABS: BASO % 0.4 % (0-2.0); EOS % 0.6 % (0-4.5); HEMATOCRIT 46.5 % (35.4-49); HEMOGLOBIN 15.7 GM/dl (11.7-16.9); LYMPH % 17.6 % (8-40); MCH 28.3 pg (25.7-33.7); MCHC 33.8 g/dl (32.0-35.9); MEAN CELL VOLUME 83.8 fl (80-96); MEAN PLT VOLUME 8.3 fl (7.5-11.1); MONO % 6.6 % (3.8-10.2); NEUT % 74.8 % (42.8-82.8); PLATELET COUNT 266 K/MM3 (134-434); RBC 5.55 M/mm3 (4.00-5.60); RDW 13.7 % (11.9-15.9); WHITE BLOOD COUNT 10.7 K/mm3 (4.0-10.8)
[2020-05-27 16:00] LABS: ALBUMIN 4.2 g/dl (3.4-5.0); BILIRUBIN,TOTAL 0.9 mg/dl (0.2-1); CALCIUM 9.1 mg/dl (8.5-10); TOT PROT 7.3 g/dl (6.4-8.2)
[2020-05-27] MEDS ORDERED: diazePAM 5 MG TABLET PO ONE (17:02)
[2020-05-27] MEDS ORDERED: KETOROLAC TROMETHAMINE 15 MG/ML VIAL IVPUSH ONE (17:02)
[2020-05-27] MEDS ORDERED: diazePAM 5 MG TABLET ONE (17:07)
[2020-05-27] MEDS ORDERED: KETOROLAC TROMETHAMINE 15 MG/ML VIAL ONE (17:08)
[2020-05-27 17:36] VITALS: BP 124/80; PULSE 75; TEMP 98.5
== END 2020-05-27 18:29 | disposition home or self-care (01) ==
LOC: FER 14:11
PROC: 3E0333Z Introduction of Anti-inflammatory into Peripheral Vein, Percutaneous Approach (ICD-10-PCS; principal; 2020-05-27)
DX: S23.9XXA Sprain of unspecified parts of thorax, initial encounter (principal); S20.221A Contusion of right back wall of thorax, initial encounter; M25.562 Pain in left knee
CPT/HCPCS: 36415; 71045-TC-FY; 72128-TC; 72131-TC; 73523-TC-FY; 73562-TC-LT-FY; 80053; 83690; 85025; 93005; 99285-25

== ENCOUNTER 2022-03-04 18:18 | Inpatient (IN) | payer BC, OTHER ==
[2022-03-04] MEDS ORDERED: SODIUM CHLORIDE 500 ML IV STA (18:22)
[2022-03-04] MEDS ORDERED: HYDROmorphone HCL CARPU-JECT 2 MG/1 ML DISP.SYRIN IVPUSH ONE ×3 (18:24→22:50)
[2022-03-04] MEDS ORDERED: KETOROLAC TROMETHAMINE 15 MG/ML VIAL IVPUSH ONE (18:24)
[2022-03-04] MEDS ORDERED: morphine SULFATE 4 MG/ML VIAL ONE (18:25)
[2022-03-04] MEDS ORDERED: ONDANSETRON 4 MG/2 ML VIAL IVPUSH ONE (18:31)
[2022-03-04] MEDS ORDERED: HYDROmorphone HCl 2 MG/ML VIAL ONE ×3 (18:47→22:52)
[2022-03-04] MEDS ORDERED: morphine SULFATE 4 MG/ML VIAL IVPUSH ONE (19:01)
[2022-03-04] MEDS ORDERED: DEXAMETHASONE SOD PHOSPHATE 10 MG/1 ML VIAL IVPUSH ONE (19:03)
[2022-03-04] MEDS ORDERED: DEXAMETHASONE SOD PHOSPHATE 4 MG/1 ML VIAL ONE (19:15)
[2022-03-04] MEDS ORDERED: ONDANSETRON 4 MG/2 ML VIAL ONE (19:16)
[2022-03-04] MEDS ORDERED: KETOROLAC TROMETHAMINE 15 MG/ML VIAL ONE (19:16)
[2022-03-04 19:35] LABS: BASO % 0.4 % (0-2.0); EOS % 0.9 % (0-4.5); HEMATOCRIT 47.9 % (35.4-49); HEMOGLOBIN 15.9 GM/dL (11.7-16.9); LYMPH % 40.3 % (8-40); MCH 27.7 pg (25.7-33.7); MCHC 33.2 g/dl (32.0-35.9); MEAN CELL VOLUME 83.6 fl (80-96); MEAN PLT VOLUME 8.9 fl (7.5-11.1); MONO % 6.5 % (3.8-10.2); NEUT % 51.9 % (42.8-82.8); PLATELET COUNT 278 10^3/uL (134-434); RBC 5.73 M/mm3 (4.00-5.60); RDW 14.4 % (11.9-15.9); WHITE BLOOD COUNT 11.5 K/mm3 (4.0-10.0)
[2022-03-04 19:40] LABS: INR 1.05 (0.83-1.09); PROTHROMBIN TIME (PATIENT) 12.1 SEC (9.7-13.0)
[2022-03-04 19:54] LABS: CALCIUM 9.3 mg/dL (8.5-10.1)
[2022-03-04 19:56] LABS: ALBUMIN 4.2 g/dl (3.4-5.0)
[2022-03-04 19:58] LABS: CREATININE 1.1 mg/dL (0.55-1.3)
[2022-03-04 20:00] LABS: BILIRUBIN,TOTAL 0.6 mg/dL (0.2-1); TOT PROT 8.3 g/dl (6.4-8.2)
[2022-03-04 20:04] LABS: LACTIC ACID 3.1 mmol/L (0.4-2.0)
[2022-03-04] MEDS ORDERED: LACTATED RINGERS SOLUTION 1000 ML INFUS.BAG IV ONE (22:42)
[2022-03-05 00:33] LABS: PH,URINE 7.5 (5.0-8.0); URINE APPEARANCE CLOUDY; URINE BILIRUBIN NEGATIVE (NEGATIVE); URINE COLOR YELLOW; URINE GLUCOSE (UA) TRACE (NEGATIVE); URINE KETONE 1+ (NEGATIVE); URINE LEUK ESTERASE NEGATIVE (NEGATIVE); URINE NITRITE NEGATIVE (NEGATIVE); URINE PROTEIN NEGATIVE (NEGATIVE); URINE UROBILINOGEN 0.2 mg/dL (0.2-1.0)
[2022-03-05] MEDS ORDERED: ACETAMINOPHEN 325 MG TABLET (FP) PO PRN (01:42)
[2022-03-05] MEDS ORDERED: HYDROmorphone HCL CARPU-JECT 2 MG/1 ML DISP.SYRIN IVPUSH PRN ×2 (01:45→01:47)
[2022-03-05] MEDS ORDERED: ONDANSETRON 4 MG/2 ML VIAL IVPUSH PRN (01:50)
[2022-03-05] MEDS ORDERED: SODIUM CHLORIDE 1,000 ML IV SCH (02:00)
[2022-03-05] MEDS ORDERED: HYDROmorphone HCl 2 MG/ML VIAL IVPB PRN ×4 (04:53→08:14)
[2022-03-05 06:13] VITALS: BMI 24.7
[2022-03-05] MEDS ORDERED: KETOROLAC TROMETHAMINE 15 MG/ML VIAL IVPUSH ONE (09:00)
[2022-03-05] MEDS: HYDROCHLOROTHIAZIDE 25 MG TABLET (FP) PO SCH ×2 (09:47→11:27)
[2022-03-05] MEDS ORDERED: LIDOCAINE 5% TOPICAL PATCH TP SCH (10:00)
[2022-03-05] MEDS ORDERED: PANTOPRAZOLE 40 MG TABLET PO SCH (10:00)
[2022-03-05] MEDS ORDERED: amLODIPine BESYLATE 5 MG TABLET (FP) PO SCH (10:00)
[2022-03-05] MEDS ORDERED: LISINOPRIL 20 MG TABLET PO SCH (10:00)
[2022-03-05 11:24] LABS: BASO % 0.1 % (0-2.0); HEMATOCRIT 48.9 % (35.4-49); LYMPH % 9.1 % (8-40); MCH 27.4 pg (25.7-33.7); MCHC 32.8 g/dl (32.0-35.9); MEAN CELL VOLUME 83.6 fl (80-96); MONO % 4.8 % (3.8-10.2); PLATELET COUNT 341 10^3/uL (134-434); RBC 5.85 M/mm3 (4.00-5.60); RDW 14.3 % (11.9-15.9); WHITE BLOOD COUNT 12.7 K/mm3 (4.0-10.0)
[2022-03-05 11:46] LABS: ALBUMIN 4.1 g/dl (3.4-5.0); CALCIUM 9.3 mg/dL (8.5-10.1)
[2022-03-05 11:47] LABS: BLOOD UREA NITROGEN 17.5 mg/dL (7-18)
[2022-03-05 11:50] LABS: CREATININE 1.4 mg/dL (0.55-1.3)
[2022-03-05 11:51] LABS: BILIRUBIN,TOTAL 0.5 mg/dL (0.2-1); TOT PROT 8.2 g/dl (6.4-8.2)
[2022-03-05 15:15] VITALS: BP 165/96; PULSE 142; RESP 20; TEMP 98.8
[2022-03-05] MEDS ORDERED: LIDOCAINE PATCH REMOVAL MC SCH (22:00)
[2022-03-05] MEDS ORDERED: HEPARIN NA (PORCINE) 5,000 UNITS/ML 1ML VIAL SQ SCH (22:00)
== END 2022-03-05 16:30 | disposition left against medical advice (07) | DRG 552 ==
LOC: JER 18:18 → JERBED 03-05 00:52 → J8W 03-05 03:34
PROVIDERS: ADMIT Specialist; ATTEND Specialist
DX: M54.50 Low back pain, unspecified (principal); I10 Essential (primary) hypertension; K21.9 Gastro-esophageal reflux disease without esophagitis; R00.0 Tachycardia, unspecified; K44.9 Diaphragmatic hernia without obstruction or gangrene; N50.812 Left testicular pain; R32 Unspecified urinary incontinence
CPT/HCPCS: 0241U-QW; 36415; 72146-TC; 72148-TC; 74177-TC; 76870-TC; 80053; 80307; 81003; 82550; 83605; 83690; 84484; 85025; 85610; 87086; 93005; 93010; 99285-25; G0378; J1100; Q9967

== ENCOUNTER 2022-04-08 04:09 | Day surgery (SDC) | payer BC, OTHER ==
[2022-04-04 14:39] VITALS: BMI 24.7
[~2022-04-08 04:09] MED LIST: LIDOCAINE 1% P/F 10 MG/ML VIAL SNB ONE
[2022-04-08 07:33] VITALS: RESP 20
[2022-04-08] MEDS ORDERED: DEXAMETHASONE SOD PHOSPHATE 10 MG/1 ML VIAL ONE (07:34)
[2022-04-08] MEDS ORDERED: LIDOCAINE HCL/PF 1% SDV 5ML VIAL ONE (07:34)
[2022-04-08] MEDS ORDERED: LIDOCAINE 1% P/F 10 MG/ML VIAL SNB ONE (09:21)
[2022-04-08 11:12] VITALS: BP 120/70; PULSE 70; TEMP 98
== END 2022-04-08 10:20 | disposition home or self-care (01) ==
LOC: JASU-SURG 04:09
PROVIDERS: ATTEND Pain Medicine Pain Medicine
PROC: 01HY0MZ Insertion of Neurostimulator Lead into Peripheral Nerve, Open Approach (ICD-10-PCS; principal; 2022-04-08 08:45)
DX: G89.4 Chronic pain syndrome (principal); M54.50 Low back pain, unspecified; I10 Essential (primary) hypertension
CPT/HCPCS: 64555; C1778; 76000-TC-FY; J1100

== ENCOUNTER 2022-05-13 09:16 | Emergency (ER) | payer BC, OTHER ==
[2022-05-13 09:26] VITALS: BP 164/95; PULSE 82; RESP 18; TEMP 97; BMI 25.1
[2022-05-13 11:27] LABS: BASO % 0.7 % (0-2.0); EOS % 1.1 % (0-4.5); HEMATOCRIT 45.8 % (35.4-49); HEMOGLOBIN 15.9 GM/dL (11.7-16.9); LYMPH % 35.3 % (8-40); MCH 28.5 pg (25.7-33.7); MCHC 34.8 g/dl (32.0-35.9); MEAN PLT VOLUME 7.7 fl (7.5-11.1); MONO % 7.7 % (3.8-10.2); NEUT % 55.2 % (42.8-82.8); PLATELET COUNT 267 10^3/uL (134-434); RBC 5.58 M/mm3 (4.00-5.60); RDW 14.3 % (11.9-15.9); WHITE BLOOD COUNT 7.5 K/mm3 (4.0-10.0)
[2022-05-13 11:56] LABS: CALCIUM 9.2 mg/dL (8.5-10.1)
[2022-05-13 11:57] LABS: ALBUMIN 3.9 g/dl (3.4-5.0); BLOOD UREA NITROGEN 15.3 mg/dL (7-18)
[2022-05-13 12:01] LABS: BILIRUBIN,TOTAL 0.5 mg/dL (0.2-1); TOT PROT 7.8 g/dl (6.4-8.2)
== END 2022-05-13 12:51 | disposition home or self-care (01) ==
LOC: JER 09:16
DX: I10 Essential (primary) hypertension (principal)
CPT/HCPCS: 36415; 71046-TC-FY; 80053; 82550; 84484; 85025; 93005; 93010; 99285-25

== ENCOUNTER 2022-06-07 04:17 | Day surgery (SDC) | payer BC, OTHER ==
[2022-06-06 09:04] VITALS: BMI 25.5
[~2022-06-07 04:17] MED LIST changes: +LIDOCAINE 1% P/F 10 MG/ML VIAL INF ONE; -LIDOCAINE 1% P/F 10 MG/ML VIAL SNB ONE
[2022-06-07] MEDS ORDERED: LIDOCAINE HCL/PF 2% SDV 5ML VIAL ONE (08:31)
[2022-06-07] MEDS ORDERED: ACETAMINOPHEN 500 MG TABLET (FP) PO PRN (10:55)
[2022-06-07] MEDS ORDERED: PROPOFOL 20 ML ONE (15:31)
[2022-06-07] MEDS ORDERED: MIDAZOLAM HCL 2 MG/2 ML SINGLE DOSE VIAL ONE (15:31)
[2022-06-07] MEDS ORDERED: LIDOCAINE 1% P/F 10 MG/ML VIAL INF ONE (15:48)
[2022-06-07 16:24] VITALS: RESP 18
[2022-06-07 17:07] VITALS: BP 138/94; PULSE 81; TEMP 97.7
== END 2022-06-07 17:05 | disposition home or self-care (01) ==
LOC: JASU-SURG 04:17
PROVIDERS: ATTEND Pain Medicine Pain Medicine
PROC: 01HY3MZ Insertion of Neurostimulator Lead into Peripheral Nerve, Percutaneous Approach (ICD-10-PCS; principal; 2022-06-07 16:30)
DX: G89.4 Chronic pain syndrome (principal); M96.1 Postlaminectomy syndrome, not elsewhere classified
CPT/HCPCS: 64555; C1778; 76000-TC-FY

== ENCOUNTER 2022-07-08 04:06 | Day surgery (SDC) | payer BC, OTHER ==
[2022-07-07 09:35] VITALS: BMI 25.5
[2022-07-08 06:56] VITALS: RESP 20
[2022-07-08] MEDS ORDERED: LIDOCAINE HCL/PF 1% SDV 5ML VIAL ONE (07:16)
[2022-07-08] MEDS ORDERED: DEXAMETHASONE SOD PHOSPHATE 10 MG/1 ML VIAL ONE (07:16)
[2022-07-08] MEDS ORDERED: LIDOCAINE 1% P/F 10 MG/ML VIAL INF ONE (08:37)
[2022-07-08 09:48] VITALS: BP 142/83; PULSE 80; TEMP 97.8
[2022-07-08] MEDS ORDERED: ACETAMINOPHEN 500 MG TABLET (FP) PO PRN (15:11)
== END 2022-07-08 09:44 | disposition home or self-care (01) ==
LOC: JASU-SURG 04:06
PROVIDERS: ATTEND Pain Medicine Pain Medicine
PROC: 01HY3MZ Insertion of Neurostimulator Lead into Peripheral Nerve, Percutaneous Approach (ICD-10-PCS; principal; 2022-07-08 09:30)
DX: G89.4 Chronic pain syndrome (principal); M96.1 Postlaminectomy syndrome, not elsewhere classified
CPT/HCPCS: 64555; C1778; 76000-TC-FY; J1100

== ENCOUNTER 2022-11-04 04:14 | Day surgery (SDC) | payer BC, OTHER ==
[2022-11-02 09:43] VITALS: BMI 26.1
[2022-11-04] MEDS ORDERED: LIDOCAINE HCL/PF 2% SDV 5ML VIAL ONE (07:25)
[2022-11-04] MEDS ORDERED: LIDOCAINE HCL/PF 1% SDV 5ML VIAL ONE (07:25)
[2022-11-04] MEDS ORDERED: ceFAZolin SODIUM 1 GM VIAL IVPB ONE (13:40)
[2022-11-04] MEDS ORDERED: LIDOCAINE HCL 1% PRESERVATIVE FREE - 30ML VIAL IJ ONE (14:03)
[2022-11-04] MEDS ORDERED: LIDOCAINE HCL/PF 2% SDV 5ML VIAL INF ONE (14:04)
[2022-11-04 15:31] VITALS: RESP 18
[2022-11-04 16:13] VITALS: BP 125/82; PULSE 75; TEMP 97.3
== END 2022-11-04 16:13 | disposition home or self-care (01) ==
LOC: JASU-SURG 04:14
PROVIDERS: ATTEND Pain Medicine Pain Medicine
PROC: 00HV3MZ Insertion of Neurostimulator Lead into Spinal Cord, Percutaneous Approach (ICD-10-PCS; principal; 2022-11-04 13:45)
DX: M96.1 Postlaminectomy syndrome, not elsewhere classified (principal)
CPT/HCPCS: 63650; C1897; 76000-TC-FY; 82962; C1889

== ENCOUNTER 2023-08-03 04:13 | Day surgery (SDC) | payer BC, OTHER ==
[2023-07-28 12:02] VITALS: BMI 25.1
[2023-08-03] MEDS ORDERED: LIDOCAINE HCL/PF 1% SDV 5ML VIAL ONE (07:30)
[2023-08-03] MEDS: LIDOCAINE HCL 1% PRESERVATIVE FREE - 30ML VIAL IJ ONE ×2 (08:49)
[2023-08-03] MEDS ORDERED: ACETAMINOPHEN 500 MG TABLET (FP) ONE (09:21)
[2023-08-03] MEDS: ACETAMINOPHEN 500 MG TABLET (FP) PO PRN (09:45)
[2023-08-03 10:22] VITALS: BP 140/91; PULSE 85; RESP 18; TEMP 98.5
[2023-08-03] MEDS: BACLOFEN 10 MG TABLET (FP) PO ONE (10:38)
== END 2023-08-03 10:50 | disposition home or self-care (01) ==
LOC: JASU-SURG 04:13
PROVIDERS: ATTEND Pain Medicine Pain Medicine
PROC: 01HY3MZ Insertion of Neurostimulator Lead into Peripheral Nerve, Percutaneous Approach (ICD-10-PCS; principal; 2023-08-03 08:30)
DX: G89.4 Chronic pain syndrome (principal); M54.2 Cervicalgia
CPT/HCPCS: 64555; C1778; 76000-TC-FY; J0475

== ENCOUNTER 2023-10-26 04:21 | Day surgery (SDC) | payer BC, OTHER ==
[2023-10-24 11:42] VITALS: BMI 25.2
[2023-10-26] MEDS ORDERED: LIDOCAINE HCL/PF 1% SDV 5ML VIAL ONE (07:27)
[2023-10-26] MEDS ORDERED: ACETAMINOPHEN 500 MG TABLET (FP) PO PRN (10:04)
[2023-10-26] MEDS ORDERED: BUPIVACAINE HCL/PF 0.25% (2.5MG/ML) 10 ML VIAL ONE ×2 (11:27→11:40)
[2023-10-26] MEDS: LIDOCAINE HCL 1% PRESERVATIVE FREE - 30ML VIAL IJ ONE ×4 (12:01→13:15)
[2023-10-26] MEDS: BUPIVACAINE HCL/PF 0.25% (2.5MG/ML) 10 ML VIAL IJ ONE ×4 (12:16)
[2023-10-26 14:34] VITALS: RESP 20
[2023-10-26 15:26] VITALS: BP 150/84; PULSE 68; TEMP 97
== END 2023-10-26 15:00 | disposition home or self-care (01) ==
LOC: JASU-SURG 04:21
PROVIDERS: ATTEND Pain Medicine Pain Medicine
PROC: 01HY0MZ Insertion of Neurostimulator Lead into Peripheral Nerve, Open Approach (ICD-10-PCS; 2023-10-26)
PROC: 01HY0MZ Insertion of Neurostimulator Lead into Peripheral Nerve, Open Approach (ICD-10-PCS; principal; 2023-10-26 11:30)
DX: M54.6 Pain in thoracic spine (principal); G89.4 Chronic pain syndrome
CPT/HCPCS: 64575; C1778; 76000-TC-FY

== ENCOUNTER 2023-12-29 09:26 | Day surgery (SDC) | payer BC, OTHER ==
[2023-12-29] MEDS ORDERED: ACETAMINOPHEN 500 MG TABLET (FP) PO PRN (10:08)
[2023-12-29 13:47] VITALS: BMI 25.8
[2023-12-29 13:50] VITALS: RESP 20
[2023-12-29] MEDS ORDERED: VANCOMYCIN 1,000 MG VIAL (RESTRICTED TO ID ONLY) ONE (16:43)
[2023-12-29] MEDS ORDERED: ONDANSETRON 4 MG/2 ML VIAL IVPUSH PRN (16:50)
[2023-12-29] MEDS ORDERED: oxyCODONE HCL 5 MG TABLET PO PRN (16:50)
[2023-12-29] MEDS ORDERED: BUPIVACAINE HCL/PF 0.5% (5MG/ML) 10 ML VIAL ONE (16:52)
[2023-12-29] MEDS ORDERED: BUPIVACAINE HCL/PF 0.25% (2.5MG/ML) 10 ML VIAL ONE (16:54)
[2023-12-29] MEDS ORDERED: MIDAZOLAM HCL 2 MG/2 ML SINGLE DOSE VIAL ONE ×2 (17:02→17:06)
[2023-12-29] MEDS: ceFAZolin SODIUM 1 GM VIAL IVPB ONE (17:15)
[2023-12-29] MEDS: LIDOCAINE 1% P/F 10 MG/ML VIAL INF ONE (17:24)
[2023-12-29] MEDS: VANCOMYCIN 1,000 MG VIAL (RESTRICTED TO ID ONLY) IVPB ONE (17:25)
[2023-12-29] MEDS: BUPIVACAINE HCL/PF 2.5 MG/ML - 30 ML VIAL IJ ONE (17:26)
[2023-12-29] MEDS ORDERED: ceFAZolin SODIUM 1 GM VIAL ONE (17:46)
[2023-12-29 19:52] VITALS: BP 121/67; PULSE 85; TEMP 98.1
== END 2023-12-29 18:55 | disposition home or self-care (01) ==
LOC: JASU-SURG 09:26
PROVIDERS: ATTEND Pain Medicine Pain Medicine
PROC: 01PY0MZ Removal of Neurostimulator Lead from Peripheral Nerve, Open Approach (ICD-10-PCS; principal; 2023-12-29 14:30)
DX: Z45.89 Encounter for adjustment and management of other implanted devices (principal); G89.4 Chronic pain syndrome
CPT/HCPCS: 76000-TC-FY; 88300-TC